=== PATIENT | female | born 1965 | race Hispanic/Latino ===

== ENCOUNTER → 2019-03-25 | Outpatient (CLI) | payer MEDICARE | END | disposition home or self-care (01) | LOC: OIH 11:00 | PROVIDERS: ATTEND Internal Medicine | DX: M06.4 Inflammatory polyarthropathy (principal) | CPT/HCPCS: 73130; 73630 ==

== ENCOUNTER 2019-11-10 21:02 | Inpatient (IN) | payer MEDICARE ==
[~2019-11-10] VITALS: Ht 160 cm; Wt 75.3 kg
[~2019-11-10 21:02] MED LIST: ALBUMIN (HUMAN) 25% 50 ML IV ONE; AMINOCAPROIC ACID 250 MG/ML 20 ML VIAL IV ONE; CALCIUM CHLORIDE 100 MG/ML 10 ML SYG IVP ONE; HEPARIN SODIUM 1000UNIT/ML 10ML VIAL IV ONE; MAGNESIUM SULFATE 1 GM/2 ML VIAL IM ONE; MANNITOL 25% 50ML VIAL IV ONE; PHENYLEPHRINE HCL 10 MG/ML 1ML VIAL IV ONE; ROCURONIUM BROMIDE 10MG/1ML 5ML VL IV ONE; SODIUM BICARB 8.4% 50ML SYRINGE IVP ONE
[2019-11-10] MEDS ORDERED: IPRATROPIUM/ALBUTEROL SULFATE 3 ML SOLUTION IH ONE (21:04)
[2019-11-10] MEDS ORDERED: ALBUTEROL SULFATE 0.083% 2.5 MG/3 ML INH IH ONE ×2 (21:12→22:20)
[2019-11-10 21:23] LABS: BASOPHILS % (AUTO) 0.5 % (0.0-5.0); EOSINOPHILS % (AUTO) 1.3 % (0.0-8.0); HEMATOCRIT 44.1 % (36-48); LYMPHOCYTES % (AUTO) 33.4 % (21.0-51.0); MEAN CORPUSCULAR HEMOGLOBIN 26.7 pg (27.0-33.0); MEAN CORPUSCULAR HGB CONC 31.1 g/dL (32.0-36.0); MONOCYTES % (AUTO) 5.2 % (3.0-13.0); NEUTROPHILS % (AUTO) 58.7 % (40.0-77.0); PLATELET COUNT (AUTO) 424 K/uL (130-400); RED BLOOD CELL COUNT(AUTO) 5.13 MIL/uL (4.00-5.50); RED CELL DISTRIBUTION WIDTH 15.6 % (11.0-15.5); WHITE BLOOD COUNT (AUTO) 12.8 K/uL (4.8-10.8)
[2019-11-10 21:38] LABS: INR 0.9 (0.85-1.15); PARTIAL THROMBOPLASTIN TIME 23.8 SEC (26.3-35.5); PROTHROMBIN TIME 9.8 SEC (9.6-11.6)
[2019-11-10] MEDS ORDERED: AZITHROMYCIN 500MG+NS 250ML 250 ML IV ONE (21:40)
[2019-11-10] MEDS ORDERED: SODIUM CHLORIDE 0.9% 1000ML 2,000 ML IV ONE (21:41)
[2019-11-10] MEDS ORDERED: CEFTRIAXONE SODIUM 1 GM ONE (21:41)
[2019-11-10 21:43] LABS: CREATININE 1.4 mg/dL (0.5-1.5); POTASSIUM 3.9 mmol/L (3.5-5.1)
[2019-11-10 21:48] LABS: ALBUMIN 3.1 g/dL (3.5-5.0); BILIRUBIN,TOTAL 0.3 mg/dL (0.2-1.0)
[2019-11-10 22:21] LABS: B-TYPE NATRIURETIC PEPTIDE 217 pg/mL (0-100)
[2019-11-10] MEDS ORDERED: METHYLPREDNISOLONE SOD SUCC 125MG/2ML VIAL ONE (22:25)
[2019-11-10] MEDS ORDERED: MORPHINE SULFATE 2 MG/ML 1ML SYG ONE ×2 (22:35→22:38)
[2019-11-10] MEDS ORDERED: ONDANSETRON HCL 4 MG/2 ML VIAL ONE (22:35)
[2019-11-10] MEDS ORDERED: ASPIRIN 325MG EC TAB 325 MG TABLET.DR PO ONE (22:38)
[2019-11-10] MEDS ORDERED: NITROGLYCERIN 1GM/1 INCH PACKET TD ONE (22:38)
[2019-11-10] MEDS ORDERED: MORPHINE SULFATE 2 MG/ML 1ML SYG IV PRN (22:45)
[2019-11-10] MEDS ORDERED: ACETAMINOPHEN 325 MG TAB PO PRN ×2 (22:45)
[2019-11-10] MEDS: METHYLPREDNISOLONE SOD SUCC 125MG/2ML VIAL IV SCH (22:45)
[2019-11-10] MEDS ORDERED: NITROGLYCERIN 0.4 MG SL TAB SL PRN (22:45)
[2019-11-10] MEDS ORDERED: VANCOMYCIN PROTOCOL PER PHARMACY IV SCH (22:45)
[2019-11-10] MEDS: DOXYCYCLINE 100MG+NS 250ML 250 ML IV SCH (22:45)
[2019-11-10] MEDS ORDERED: ONDANSETRON HCL 4 MG/2 ML VIAL IV PRN (22:45)
[2019-11-10] MEDS ORDERED: ASPIRIN 325 MG TABLET ONE (22:57)
[2019-11-10 23:15] LABS: ABG BASE EXCESS -9.8 mmol/L (-2.0-3.0); ABG HCO3 18.3 mmol/L (21.0-28.0); ABG OXYGEN SATURATION 94.6 % (95.0-99.0); ABG PCO2 49 mmHg (32-45)
[2019-11-10] MEDS ORDERED: HYDRALAZINE HCL 20 MG/ML VIAL IV PRN (23:45)
[2019-11-10 23:51] LABS: CHOLESTEROL 187 mg/dL (<200); HDL CHOLESTEROL 114 mg/dL (35-85); LDL DIRECT 105 mg/dL (0-99); TRIGLYCERIDES 195 mg/dL (30-200)
[2019-11-10] MEDS ORDERED: PROPOFOL 1000 MG/100 ML 100 ML IV ONE (23:58)
[2019-11-11] VITALS (43 sets, daily range): BP systolic 87–115; BP diastolic 42–71
[2019-11-11] MEDS ORDERED: VANCOMYCIN 1GM+NS 250ML 250 ML IV SCH
[2019-11-11] MEDS ORDERED: IOHEXOL-350 75 ML VIAL IV ONE (00:18)
[2019-11-11] MEDS ORDERED: FUROSEMIDE 10 MG/ML 4ML VIAL ONE (00:20)
[2019-11-11] MEDS ORDERED: NOREPINEPHRINE BITARTRATE 1 MG/1 ML ML IV ONE ×2 (00:22→01:54)
[2019-11-11] MEDS ORDERED: SODIUM CHLORIDE 0.9% 250 ML IV ONE ×2 (00:23→01:55)
[2019-11-11] MEDS ORDERED: FENTANYL CITRATE PF 50 MCG/1 ML 2ML VIAL ONE (00:38)
[2019-11-11] MEDS ORDERED: MIDAZOLAM HCL 1 MG/ML 2ML VIAL ONE ×2 (00:38→01:21)
[2019-11-11] MEDS ORDERED: FENTANYL 1000MCG+NS 100ML 100 ML ONE ×3 (01:41→18:10)
[2019-11-11] MEDS ORDERED: FENTANYL CITRATE PF 0.05 MG/ML 1,000 MCG in SODIUM CHLORIDE 0.9% 100 ML IVPB SCH (01:45)
[2019-11-11] MEDS: IPRATROPIUM/ALBUTEROL SULFATE 3 ML SOLUTION IH SCH ×5 (02:00→17:30)
[2019-11-11] MEDS ORDERED: DOXYCYCLINE 100MG+NS 250ML 250 ML IV ONE (02:32)
[2019-11-11] MEDS: CEFEPIME HCL 2 GM VIAL IVP SCH ×3 (02:50→23:45)
[2019-11-11 03:07] LABS: ABG BASE EXCESS -12.3 mmol/L (-2.0-3.0); ABG OXYGEN SATURATION 79.4 % (95.0-99.0); ABG PCO2 52 mmHg (32-45)
--- NOTE | 2019-11-11 03:20 | NUR ---
BENCHMARK PICKARD IMPLEMENTATION MANAGER PAGED FOR ABG RESULTS. PENDING CALL BACK
[2019-11-11 03:23] LABS: ABG BASE EXCESS -11.7 mmol/L (-2.0-3.0); ABG HCO3 17.4 mmol/L (21.0-28.0); ABG OXYGEN SATURATION 80.1 % (95.0-99.0); ABG PCO2 51 mmHg (32-45)
--- NOTE | 2019-11-11 03:31 | NUR ---
HOSPITALIST UYEN AT BEDSIDE STATES HE WAS CALLED WITH CT SCAN RESULTS BY RADIOLOGIST AND CARDIOLOGY TO BE CONSULTED IN AM. Addendum: 11/11/19 at 0351 by CONSTANCE BEARDEN RN RN HE WAS ALSO GIVEN RESULTS OR RESPIRATORY PCR
--- NOTE | 2019-11-11 03:51 | NUR ---
BENCHMARK PICKARD RETAIL PRODUCT DEMO SPECIALIST PAGED AGAIN AT THIS TIME.
[2019-11-11] MEDS ORDERED: FUROSEMIDE 100 MG in SODIUM CHLORIDE 0.9% 100 ML IV SCH (04:00)
[2019-11-11] MEDS: SODIUM BICARB 8.4% 50ML SYRING 200 MEQ in DEXTROSE 5%-WATER 950 ML IV SCH ×4 (04:00→20:17)
[2019-11-11] MEDS ORDERED: SODIUM BICARB 50MEQ 50ML VIAL IV SCH (04:00)
[2019-11-11] MEDS ORDERED: SODIUM BICARB 50MEQ 50ML VIAL ONE (04:06)
[2019-11-11] MEDS ORDERED: FUROSEMIDE 10 MG/ML 10ML VIAL ONE (04:06)
[2019-11-11] MEDS ORDERED: DEXTROSE 5%-WATER 1,000 ML IV ONE (04:07)
[2019-11-11] MEDS ORDERED: SODIUM CHLORIDE 0.9% 100 ML IV ONE (04:07)
[2019-11-11] MEDS: METHYLPREDNISOLONE SOD SUCC 125MG/2ML VIAL IV SCH ×3 (05:49→23:45)
[2019-11-11] MEDS ORDERED: COMPOUND IV REFRIGERATED 1 EACH IVSOLN MISC PRN (06:30)
[2019-11-11 06:48] LABS: CREATININE 1.5 mg/dL (0.5-1.5); POTASSIUM 3.9 mmol/L (3.5-5.1)
[2019-11-11 07:21] LABS: BASOPHILS % (AUTO) 0.2 % (0.0-5.0); HEMATOCRIT 42.1 % (36-48); LYMPHOCYTES % (AUTO) 3.9 % (21.0-51.0); MEAN CORPUSCULAR HEMOGLOBIN 27.5 pg (27.0-33.0); MEAN CORPUSCULAR HGB CONC 32.1 g/dL (32.0-36.0); MEAN CORPUSCULAR VOLUME 85.7 fL (79-99); MONOCYTES % (AUTO) 3.1 % (3.0-13.0); NEUTROPHILS % (AUTO) 90.7 % (40.0-77.0); PLATELET COUNT (AUTO) 401 K/uL (130-400); RED BLOOD CELL COUNT(AUTO) 4.91 MIL/uL (4.00-5.50); RED CELL DISTRIBUTION WIDTH 15.9 % (11.0-15.5); WHITE BLOOD COUNT (AUTO) 22.6 K/uL (4.8-10.8)
[2019-11-11 07:51] LABS: ABG BASE EXCESS -3.8 mmol/L (-2.0-3.0); ABG HCO3 21.6 mmol/L (21.0-28.0); ABG OXYGEN SATURATION 80.9 % (95.0-99.0); ABG PCO2 40 mmHg (32-45)
[2019-11-11] MEDS: METOPROLOL TARTRATE 25 MG TAB PO SCH ×2 (08:02→20:17)
[2019-11-11] MEDS: ASPIRIN 325 MG TABLET PO SCH (09:00)
[2019-11-11] MEDS: NOREPINEPHRINE 4MG/NS 250ML 250 ML IV SCH (10:18)
[2019-11-11] MEDS: FAMOTIDINE/PF 20 MG/2 ML VIAL IV SCH ×2 (10:19→20:16)
[2019-11-11] MEDS: ENOXAPARIN SODIUM 40 MG/0.4 ML SYRINGE SQ SCH (10:19)
[2019-11-11] MEDS: VANCOMYCIN 1.25 GM in SODIUM CHLORIDE 0.9% 250 ML IV SCH (10:20)
[2019-11-11] MEDS: MIDAZOLAM 50MG-0.9% NS 50ML 50 ML BAG IV SCH (10:44)
[2019-11-11 11:21] LABS: ABG BASE EXCESS -3.5 mmol/L (-2.0-3.0); ABG HCO3 22.7 mmol/L (21.0-28.0); ABG OXYGEN SATURATION 78.2 % (95.0-99.0); ABG PCO2 45 mmHg (32-45)
[2019-11-11] MEDS: DOXYCYCLINE 100MG+NS 250ML 250 ML IV SCH ×2 (12:21→23:45)
--- NOTE | 2019-11-11 14:34 | NUR ---
TUBE FEEDING RECOMMENDATIONS DX ARDS. DIET: NPO. LABS REVIEWED (WBC 23, NA 146). MEDS REVIEWED. SKIN IS INTACT. PT IS CURRENTLY INTUBATED AND SEDATED. AIR[place]ORNE PRECAUTIONS CURRENTLY IN PLACE. RD RECOMMENDS TO START TUBE FEEDING IF MEDICALLY FEASIBLE USING VITAL AF 1.2 START FULL STRENGTH AT 25ML/HR INCREASE RATE BY 5MLS EVERY 5HRS TOLERATED UNTIL GOAL RATE ACHIEVED GOAL RATE IS 45ML/HR FLUSH WITH 255ML Q6HRS MONITOR LABS, RESIDUALS, BM RD WILL CONTINUE TO MONITOR AND FOLLOW UP, THANK YOU. Addendum: 11/11/19 at [address] Amended: Links added.
--- NOTE | 2019-11-11 15:06 | NUR ---
DELORES PLAN PATIENT IN ISOLATION NO VISITORS ALLOWED. POOR CONDITION. KEVIN WILL CONTINUE TO FOLLOW. Addendum: 11/11/19 at 1530 by BERTRAND BETANCUR RN CM Amended: Links added.
[2019-11-11 16:53] LABS: ABG BASE EXCESS -1.3 mmol/L (-2.0-3.0); ABG HCO3 24.7 mmol/L (21.0-28.0); ABG OXYGEN SATURATION 78.7 % (95.0-99.0); ABG PCO2 46 mmHg (32-45)
[2019-11-11] MEDS ORDERED: SODIUM CHLORIDE 0.9% 500ML 500 ML IV ONE (18:00)
[2019-11-11] MEDS: INSULIN HUMULIN R 100 UNIT/ML 3ML SQ SCH (18:05)
--- NOTE | 2019-11-11 19:50 | NUR ---
DR KAM HUMPHREY FOR PT UP-DATE. PT UP-DATE GIVEN. MADE AWARE SP02 60%. PT NPO UNABLE TO GIVEN ORAL MEDS. SEE ORDERS.
--- NOTE | 2019-11-11 20:00 | NUR ---
ASSESSMENT PT IN PRONE POSITION. LEVOPHED, FENTANYL AND VERSED INFUSING WITHOUT DIFFICULTY. FROTHY PINK SPUTUM NOTED. PT INTUBATED, AC-24-100%-400-PEEP 18 PLATEAU PRESSURE 28. ASSESSMENT COMPLETED, SEE FLOW SHEET.
[2019-11-11] MEDS: ATORVASTATIN CALCIUM 20 MG TABLET PO SCH (20:17)
[2019-11-11] MEDS: IPRATROPIUM 0.5 MG/2.5 ML INH IH SCH (21:15)
[2019-11-11 22:23] LABS: ABG BASE EXCESS -1.2 mmol/L (-2.0-3.0); ABG HCO3 23.5 mmol/L (21.0-28.0); ABG OXYGEN SATURATION 88.2 % (95.0-99.0); ABG PCO2 40 mmHg (32-45)
--- NOTE | 2019-11-11 22:30 | NUR ---
DR KAM HUMPHREY CALLED WITH ABG RESULTS. NO NEW ORDERS AT THIS TIME.
[2019-11-12] VITALS (34 sets, daily range): BP systolic 87–138; BP diastolic 52–81
[2019-11-12] MEDS: IPRATROPIUM 0.5 MG/2.5 ML INH IH SCH ×5 (00:06→08:00)
[2019-11-12] MEDS ORDERED: FENTANYL 1000MCG+NS 100ML 100 ML ONE ×4 (00:20→22:57)
--- NOTE | 2019-11-12 00:27 | NUR ---
CVP 6 CVP 6, 500ML NS BOLUS GIVEN
[2019-11-12] MEDS ORDERED: SODIUM CHLORIDE 0.9% 500ML 500 ML IV ONE (00:40)
[2019-11-12] MEDS: SODIUM BICARB 8.4% 50ML SYRING 200 MEQ in DEXTROSE 5%-WATER 950 ML IV SCH (02:42)
[2019-11-12] MEDS: NOREPINEPHRINE 4MG/NS 250ML 250 ML IV SCH ×4 (04:37→20:58)
[2019-11-12] MEDS: MIDAZOLAM 50MG-0.9% NS 50ML 50 ML BAG IV SCH ×2 (04:37→20:42)
[2019-11-12] MEDS: INSULIN HUMULIN R 100 UNIT/ML 3ML SQ SCH ×4 (05:00→18:00)
[2019-11-12] MEDS: METHYLPREDNISOLONE SOD SUCC 125MG/2ML VIAL IV SCH (05:00)
[2019-11-12 05:20] LABS: BASOPHILS % (AUTO) 0.1 % (0.0-5.0); LYMPHOCYTES % (AUTO) 4.6 % (21.0-51.0); MEAN CORPUSCULAR HEMOGLOBIN 27.6 pg (27.0-33.0); MEAN CORPUSCULAR HGB CONC 32.3 g/dL (32.0-36.0); MEAN CORPUSCULAR VOLUME 85.6 fL (79-99); MONOCYTES % (AUTO) 3.2 % (3.0-13.0); NEUTROPHILS % (AUTO) 91.7 % (40.0-77.0); PLATELET COUNT (AUTO) 312 K/uL (130-400); RED BLOOD CELL COUNT(AUTO) 4.09 MIL/uL (4.00-5.50); RED CELL DISTRIBUTION WIDTH 16.2 % (11.0-15.5); WHITE BLOOD COUNT (AUTO) 18.7 K/uL (4.8-10.8)
--- NOTE | 2019-11-12 05:30 | NUR ---
PCP PCP VERBALIZED TO RN THAT HE "FELT UNCOMFORTABLE/SCARED" GOING INTO PT'S ROOM TO CHECK TEMPS. PCP RELAYED THIS INFORMATION TO RN AT THE END OF SHIFT.
[2019-11-12 05:42] LABS: CREATININE 1.7 mg/dL (0.5-1.5); POTASSIUM 3.6 mmol/L (3.5-5.1)
[2019-11-12 05:45] LABS: ABG BASE EXCESS -0.9 mmol/L (-2.0-3.0); ABG HCO3 23.3 mmol/L (21.0-28.0); ABG OXYGEN SATURATION 87.3 % (95.0-99.0); ABG PCO2 37 mmHg (32-45)
[2019-11-12] MEDS: IPRATROPIUM/ALBUTEROL SULFATE 3 ML SOLUTION IH SCH (06:26)
[2019-11-12] MEDS: ASPIRIN 325 MG TABLET PO SCH (09:00)
--- NOTE | 2019-11-12 09:00 | NUR ---
Manohar Hendrix in an effort to facilitate him seeing patient.
[2019-11-12] MEDS: FENTANYL CITRATE PF 0.05 MG/ML 1,000 MCG in SODIUM CHLORIDE 0.9% 100 ML IVPB SCH (09:42)
[2019-11-12] MEDS: ENOXAPARIN SODIUM 40 MG/0.4 ML SYRINGE SQ SCH (09:47)
[2019-11-12] MEDS: CEFEPIME HCL 2 GM VIAL IVP SCH (09:47)
[2019-11-12] MEDS: VANCOMYCIN 1.25 GM in SODIUM CHLORIDE 0.9% 250 ML IV SCH (09:48)
[2019-11-12] MEDS: DOXYCYCLINE 100MG+NS 250ML 250 ML IV SCH ×2 (09:50→22:50)
[2019-11-12] MEDS: FAMOTIDINE/PF 20 MG/2 ML VIAL IV SCH ×2 (09:50→19:59)
--- NOTE | 2019-11-12 11:12 | NUR ---
2D-ECHO SPOKE C/ LAURI ELECTRIC TRIPPER MACHINE OPERATOR. MADE AWARE OF PENDING ECHO AND TIME SENSITIVITY TO BE DONE TODAY DURING THE DAY WHILE PATIENT IS IN SUPINE POSITION. PATIENT WILL BE PLACED BACK IN PRONE POSITION AT 2100. HE STATED ECHO WILL BE COMPLETED TODAY. PENDING ECHO AT THIS TIME.
[2019-11-12 12:49] LABS: APPEARANCE,URINE CLEAR (CLEAR); BILIRUBIN,URINE NEGATIVE (NEGATIVE); COLOR,URINE YELLOW (YELLOW); GLUCOSE, URINE (UA) NEGATIVE (NEGATIVE); KETONES,URINE NEGATIVE (NEGATIVE); LEUKOCYTE ESTERASE ,URINE NEGATIVE (NEGATIVE); NITRATE,URINE NEGATIVE (NEGATIVE); OCCULT BLOOD,URINE NEGATIVE (NEGATIVE); PROTEIN,URINE 30 mg/dL (NEGATIVE); UROBILINOGEN,URINE 0.2 mg/dL (0.2-1.0)
[2019-11-12] MEDS: MEROPENEM 1 GM VIAL IVP SCH ×2 (12:55→20:39)
[2019-11-12 13:05] LABS: BACTERIA,URINE Few /HPF (None Seen); MUCUS,URINE Few LPF (None Seen); SQUAMOUS EPITHELIAL CELL,UR Few /HPF (0-2)
--- NOTE | 2019-11-12 14:00 | NUR ---
Paged Dr. Hendrix again. In an effort to make aware of most recent 2D-Echo results. Was going to inquire if he wanted to place order for SUSAN? Pending call back and for him to see patient at this time.
[2019-11-12] MEDS ORDERED: ACETAMINOPHEN 650 MG SUPPOSITORY RC PRN (14:30)
[2019-11-12] MEDS ORDERED: PHARMACY COMMUNICATION MISC SCH (14:30)
[2019-11-12] MEDS ORDERED: HYDROXYCHLOROQUINE SULFATE 200 MG TAB PO SCH (14:48)
[2019-11-12] MEDS: ATORVASTATIN CALCIUM 20 MG TABLET PO SCH (20:00)
--- NOTE | 2019-11-12 20:00 | NUR ---
ASSESSMENT PT IN SUPINE POSITION. LEVOPHED, FENTANYL AND VERSED INFUSING WITHOUT DIFFICULTY. FROTHY PINK SPUTUM NOTED AND WEAK/SLOW GAG REFLEX NOTED. PT INTUBATED, AC-24-100%-400-PEEP 18 PLATEAU PRESSURE 28. 16FR NAVARRETE CATH TO BEDSIDE DRAINAGE. ASSESSMENT COMPLETED, SEE FLOW SHEET. BEDSIDE MONITOR SETTING REVIEWED AND ADJUSTED PER PT PARAMETERS. CALLBELL WITHIN REACH. WHITE BOARD UP-DATED.
--- NOTE | 2019-11-12 20:30 | NUR ---
DR KAM HUMPHREY CALLED AND MADE AWARE SPO2 DECREASING TO 84% - 88%. R.T. PLACED O2 10L FLOW. NO OTHER ORDERS RECEIVED.
[2019-11-12] MEDS ORDERED: FAMOTIDINE/PF 20 MG/2 ML VIAL IV STA (20:45)
[2019-11-13] VITALS (32 sets, daily range): BP systolic 112–135; BP diastolic 64–82
--- NOTE | 2019-11-13 00:19 | NUR ---
As per Dr. Newman's order vent management done with 10L O2 flow added. Addendum: 11/13/19 at 0026 by ROBERTO LIRA RT Amended: Links added.
--- NOTE | 2019-11-13 00:21 | NUR ---
As per Dr. Newman's order vent management done with 8L O2 flow added. Addendum: 11/13/19 at 0026 by ROBERTO LIRA RT Amended: Links added.
--- NOTE | 2019-11-13 01:19 | NUR ---
As per Dr. Newman's order vent management done with 8L O2 flow added. Addendum: 11/13/19 at 0123 by ROBERTO LIRA RT Amended: Links added.
[2019-11-13] MEDS: MEROPENEM 1 GM VIAL IVP SCH ×3 (04:16→19:52)
[2019-11-13] MEDS: MIDAZOLAM 50MG-0.9% NS 50ML 50 ML BAG IV SCH ×3 (04:17→22:52)
[2019-11-13 05:00] LABS: BASOPHILS % (AUTO) 0.1 % (0.0-5.0); HEMATOCRIT 32.8 % (36-48); LYMPHOCYTES % (AUTO) 4.9 % (21.0-51.0); MEAN CORPUSCULAR HEMOGLOBIN 27.1 pg (27.0-33.0); MEAN CORPUSCULAR HGB CONC 31.4 g/dL (32.0-36.0); MEAN CORPUSCULAR VOLUME 86.3 fL (79-99); MONOCYTES % (AUTO) 3.8 % (3.0-13.0); NEUTROPHILS % (AUTO) 90.2 % (40.0-77.0); NUCLEATED RED BLOOD CELLS 0.1 % (0.0-0.19); PLATELET COUNT (AUTO) 248 K/uL (130-400); RED CELL DISTRIBUTION WIDTH 17.2 % (11.0-15.5)
[2019-11-13 05:10] LABS: CREATININE 1.2 mg/dL (0.5-1.5); POTASSIUM 3.7 mmol/L (3.5-5.1)
[2019-11-13] MEDS: INSULIN HUMULIN R 100 UNIT/ML 3ML SQ SCH ×4 (05:32→18:00)
[2019-11-13] MEDS ORDERED: FENTANYL 1000MCG+NS 100ML 100 ML ONE ×2 (07:37→18:40)
[2019-11-13] MEDS: NOREPINEPHRINE 4MG/NS 250ML 250 ML IV SCH ×2 (07:45→22:52)
[2019-11-13] MEDS: DOXYCYCLINE 100MG+NS 250ML 250 ML IV SCH ×2 (07:45→22:52)
[2019-11-13] MEDS: FAMOTIDINE/PF 20 MG/2 ML VIAL IV SCH (07:46)
[2019-11-13] MEDS: VANCOMYCIN 1.25 GM in SODIUM CHLORIDE 0.9% 250 ML IV SCH (07:46)
[2019-11-13] MEDS: ENOXAPARIN SODIUM 40 MG/0.4 ML SYRINGE SQ SCH (07:47)
[2019-11-13 08:39] LABS: ABG BASE EXCESS -1.5 mmol/L (-2.0-3.0); ABG HCO3 22.3 mmol/L (21.0-28.0); ABG OXYGEN SATURATION 99.5 % (95.0-99.0); ABG PCO2 35 mmHg (32-45)
[2019-11-13] MEDS ORDERED: FUROSEMIDE 10 MG/ML 2ML VIAL IV SCH (10:30)
[2019-11-13] MEDS: ASPIRIN 81MG TAB.CHEW PO SCH (11:39)
[2019-11-13] MEDS: HYDROXYCHLOROQUINE SULFATE 200 MG TAB PO SCH (11:39)
--- NOTE | 2019-11-13 13:16 | NUR ---
CARDIO PAGED CARDIO AT 0900 IN AN EFFORT TO HAVE CARDIO COME AND SEE PATIENT. CARDIO CONSULTED 3DAYS AGO. HAVE YET TO SEE PATIENT. MADE CHARGE NURSE TOMMY AWARE TODAY. NO RESPONSE FROM PAGE. MADE CHARGE NURSE AWARE OF SITUATION. CHARGE NURSE SPOKE WITH DR GIPSON AND AT THIS TIME CARDIO WILL NOT SEE PATIENT UNTIL PATIENT IS CLEARED FROM INFECTIOUS DISEASE AND OK BY DR. LYNN TO SEE PATIENT. ALSO, DR GIPSON SPOKE WITH DR ROLLE ([facility]). DR ROLLE STATED THAT HE WILL SEE PATIENT ONCE CLEARED FROM ID AND DR LYNN.
--- NOTE | 2019-11-13 20:00 | NUR ---
ASSESSMENT PT IN SUPINE POSITION. LEVOPHED, FENTANYL AND VERSED INFUSING WITHOUT DIFFICULTY. FROTHY BROWN SPUTUM NOTED AND (+) COUGH, OPENS EYES WITH VERBAL STIMULI BUT DOES NOT FOLLOW COMMANDS OR TRACK. WEAK/SLOW GAG REFLEX NOTED. PT INTUBATED, AC-24-80%-400-PEEP 16. 16FR NAVARRETE CATH TO BEDSIDE DRAINAGE. 16FR OGT IN PLACE WITH GLUCERNA INFUSING, TOLERATING WITHOUT DIFFICULTY AT PRESENT. ASSESSMENT COMPLETED, SEE FLOW SHEET. BEDSIDE MONITOR SETTING REVIEWED AND ADJUSTED PER PT PARAMETERS. CALLBELL WITHIN REACH. WHITE BOARD UP-DATED.
[2019-11-13] MEDS: ATORVASTATIN CALCIUM 20 MG TABLET PO SCH (20:03)
--- NOTE | 2019-11-13 20:30 | NUR ---
FAMILY CALLED SPOKE WITH SON SYDNEE. REQUESTING INFORMATION. NO PASSWORD HAS BEEN SET UP. INFORMED HIM ONLY BASIC/LIMITED INFO COULD BE GIVEN.
[2019-11-13] MEDS ORDERED: HYDROXYCHLOROQUINE SULFATE 200 MG TAB PO SCH (21:00)
[2019-11-14] VITALS (28 sets, daily range): BP systolic 91–118; BP diastolic 54–82
--- NOTE | 2019-11-14 04:00 | NUR ---
ASSESSMENT PT REMAINS INTUBATED AND SEDATED. VENT SETTING AC-24-50%-400-16 . LEVOPHED, FENTANYL AND VERSED INFUSING WITHOUT DIFFICULTY. FROTHY BROWN SPUTUM NOTED AND (+) COUGH, OPENS EYES WITH VERBAL STIMULI BUT DOES NOT FOLLOW COMMANDS OR TRACK. (+) GAG REFLEX NOTED. 16FR NAVARRETE CATH TO BEDSIDE DRAINAGE. 16FR OGT IN PLACE WITH GLUCERNA INFUSING, TOLERATING WITHOUT DIFFICULTY AT PRESENT. ASSESSMENT COMPLETED, SEE FLOW SHEET. CALLBELL WITHIN REACH.
[2019-11-14] MEDS: MEROPENEM 1 GM VIAL IVP SCH ×3 (04:32→22:04)
[2019-11-14 05:27] LABS: BASOPHILS % (AUTO) 0.1 % (0.0-5.0); EOSINOPHILS % (AUTO) 0.7 % (0.0-8.0); HEMATOCRIT 29.6 % (36-48); LYMPHOCYTES % (AUTO) 8.7 % (21.0-51.0); MEAN CORPUSCULAR HEMOGLOBIN 27.9 pg (27.0-33.0); MEAN CORPUSCULAR HGB CONC 32.4 g/dL (32.0-36.0); MONOCYTES % (AUTO) 3.2 % (3.0-13.0); NEUTROPHILS % (AUTO) 86.3 % (40.0-77.0); NUCLEATED RED BLOOD CELLS 0.2 % (0.0-0.19); PLATELET COUNT (AUTO) 168 K/uL (130-400); RED BLOOD CELL COUNT(AUTO) 3.44 MIL/uL (4.00-5.50); WHITE BLOOD COUNT (AUTO) 16.4 K/uL (4.8-10.8)
[2019-11-14 05:47] LABS: ALBUMIN 1.7 g/dL (3.5-5.0); BILIRUBIN,TOTAL 0.3 mg/dL (0.2-1.0); CREATININE 0.8 mg/dL (0.5-1.5); PHOSPHORUS 1.8 mg/dL (2.5-4.9); POTASSIUM 3.5 mmol/L (3.5-5.1); TOTAL PROTEIN, SERUM 5.9 g/dL (6.0-8.3)
[2019-11-14] MEDS: INSULIN HUMULIN R 100 UNIT/ML 3ML SQ SCH ×4 (06:00→18:00)
[2019-11-14 08:12] LABS: ABG BASE EXCESS 2.3 mmol/L (-2.0-3.0); ABG HCO3 24.5 mmol/L (21.0-28.0); ABG OXYGEN SATURATION 95.1 % (95.0-99.0); ABG PCO2 32 mmHg (32-45)
[2019-11-14] MEDS ORDERED: FENTANYL 1000MCG+NS 100ML 100 ML ONE ×2 (08:44→19:41)
[2019-11-14] MEDS: ASPIRIN 81MG TAB.CHEW PO SCH (08:52)
[2019-11-14] MEDS: VANCOMYCIN 1.25 GM in SODIUM CHLORIDE 0.9% 250 ML IV SCH ×2 (08:52→22:05)
[2019-11-14] MEDS: HYDROXYCHLOROQUINE SULFATE 200 MG TAB PO SCH (08:53)
[2019-11-14] MEDS: FAMOTIDINE/PF 20 MG/2 ML VIAL IV SCH (08:54)
[2019-11-14] MEDS: ENOXAPARIN SODIUM 40 MG/0.4 ML SYRINGE SQ SCH (08:54)
[2019-11-14] MEDS: POTASSIUM CHLORIDE 20MEQ/100ML 100 ML IV PRN (08:58)
[2019-11-14] MEDS: DOXYCYCLINE 100MG+NS 250ML 250 ML IV SCH ×2 (11:52→22:05)
[2019-11-14] MEDS ORDERED: VANCOMYCIN 1.25 GM in SODIUM CHLORIDE 0.9% 250 ML IV SCH (12:00)
[2019-11-14] MEDS: MIDAZOLAM 50MG-0.9% NS 50ML 50 ML BAG IV SCH (13:37)
--- NOTE | 2019-11-14 14:09 | NUR ---
RD UPDATE Tube feeding notification received 11/13/19. RD TUBE FEEDING RECOMMENDATIONS PLACED 11/11/19. Multiple attempts to reach RN. Quarantine/Isolated Unit. TUBE FEEDING RECOMMENDATIONS CONTINUOUS VITAL AF 1.2 START FULL STRENGTH AT 25ML/HR INCREASE RATE BY 5MLS EVERY 5HRS TOLERATED UNTIL GOAL RATE ACHIEVED GOAL RATE IS 45ML/HR FLUSH WITH 255ML Q6HRS. RECOMMENDATIONS IN PT CHART.
[2019-11-14] MEDS: ARTIFICAL TEARS SOL 15 ML OU SCH ×2 (16:10→20:00)
[2019-11-14] MEDS: POTASSIUM PHOS 15 mMOL+NS250ML 250 ML IV PRN (18:18)
--- NOTE | 2019-11-14 20:23 | NUR ---
PT SATURATION 80% FIO2 INCREASED TO 100%,PRIMARY NURSE VENKATESH NOTIFIED,SATURATION INCREASED TO 95%
--- NOTE | 2019-11-14 21:00 | NUR ---
ASSESSMENT PT REMAINS INTUBATED AND SEDATED. VENT SETTING AC-20-100%-400-14 . LEVOPHED, FENTANYL AND VERSED INFUSING WITHOUT DIFFICULTY. FROTHY PINK SPUTUM NOTED AND (+) COUGH, OPENS EYES WITH VERBAL STIMULI. (+) GAG REFLEX NOTED. 16FR NAVARRETE CATH TO BEDSIDE DRAINAGE. 16FR OGT IN PLACE WITH GLUCERNA INFUSING, TOLERATING WITHOUT DIFFICULTY AT PRESENT. ASSESSMENT COMPLETED, SEE FLOW SHEET. CALLBELL WITHIN REACH.
[2019-11-14] MEDS: ATORVASTATIN CALCIUM 20 MG TABLET PO SCH (22:05)
[2019-11-14] MEDS: CHLORHEXIDINE GLUCONATE 473 ML MOUTHWASH MM SCH (22:05)
--- NOTE | 2019-11-14 23:20 | NUR ---
LACHO MONK NP MADE AWARE OF SPO2 AT 80%. SEE ORDERS.
[2019-11-15] VITALS (35 sets, daily range): BP systolic 79–136; BP diastolic 43–79
[2019-11-15 01:09] LABS: ABG BASE EXCESS 0.7 mmol/L (-2.0-3.0); ABG HCO3 24.5 mmol/L (21.0-28.0); ABG OXYGEN SATURATION 91.4 % (95.0-99.0); ABG PCO2 37 mmHg (32-45)
--- NOTE | 2019-11-15 01:15 | NUR ---
RESULTS VENT CHANGES MADE, ABG RESULTS GIVEN TO LACHO MONREAL. NO NEW ORDERS AT PRESENT.
[2019-11-15] MEDS: ARTIFICAL TEARS SOL 15 ML OU SCH ×3 (02:06→12:21)
[2019-11-15] MEDS: MEROPENEM 1 GM VIAL IVP SCH ×3 (03:48→21:10)
--- NOTE | 2019-11-15 04:00 | NUR ---
ASSESSMENT PT REMAINS INTUBATED AND SEDATED. VENT SETTING AC-18-100%-400 PEEP 18 . LEVOPHED, FENTANYL AND VERSED INFUSING WITHOUT DIFFICULTY. FROTHY PINK SPUTUM NOTED AND (+) COUGH, OPENS EYES WITH VERBAL STIMULI. (+) GAG REFLEX NOTED. 16FR NAVARRETE CATH TO BEDSIDE DRAINAGE. 16FR OGT IN PLACE WITH GLUCERNA INFUSING, TOLERATING WITHOUT DIFFICULTY AT PRESENT. ASSESSMENT COMPLETED, SEE FLOW SHEET. CALLBELL WITHIN REACH.
--- NOTE | 2019-11-15 05:15 | NUR ---
TACHYPNEIC/NASAL FLARING/SUBCLAVICULAR RETRACTIONS ATTEMPTED TO BATH PT. PT BEGAN TACHYPNEIC WITH NASAL FLARING AND SUBCLAVICULAR RETRACTIONS/INTERCOSTAL RETRACTIONS NOTED. BATH TERMINATED
[2019-11-15 05:48] LABS: HEMATOCRIT 33.5 % (36-48); MEAN CORPUSCULAR HEMOGLOBIN 26.4 pg (27.0-33.0); MEAN CORPUSCULAR HGB CONC 30.4 g/dL (32.0-36.0); MEAN CORPUSCULAR VOLUME 86.6 fL (79-99); NUCLEATED RED BLOOD CELLS 0.5 % (0.0-0.19); PLATELET COUNT (AUTO) 173 K/uL (130-400); RED BLOOD CELL COUNT(AUTO) 3.87 MIL/uL (4.00-5.50); RED CELL DISTRIBUTION WIDTH 17.2 % (11.0-15.5); WHITE BLOOD COUNT (AUTO) 13.6 K/uL (4.8-10.8)
[2019-11-15] MEDS: INSULIN HUMULIN R 100 UNIT/ML 3ML SQ SCH ×4 (05:58→18:00)
[2019-11-15 06:02] LABS: PARTIAL THROMBOPLASTIN TIME 26.1 SEC (26.3-35.5); PROTHROMBIN TIME 10.8 SEC (9.6-11.6)
[2019-11-15 06:30] LABS: ALBUMIN 1.7 g/dL (3.5-5.0); BILIRUBIN,TOTAL 0.5 mg/dL (0.2-1.0); CREATININE 0.8 mg/dL (0.5-1.5); MAGNESIUM 2.1 mg/dL (1.80-2.40); PHOSPHORUS 2.7 mg/dL (2.5-4.9)
[2019-11-15 06:43] LABS: B-TYPE NATRIURETIC PEPTIDE 350 pg/mL (0-100)
[2019-11-15 07:13] LABS: ABG BASE EXCESS 0.2 mmol/L (-2.0-3.0); ABG HCO3 23.9 mmol/L (21.0-28.0); ABG OXYGEN SATURATION 90.2 % (95.0-99.0); ABG PCO2 36 mmHg (32-45)
[2019-11-15] MEDS ORDERED: FUROSEMIDE 10 MG/ML 4ML VIAL IV SCH (08:45)
[2019-11-15] MEDS ORDERED: PHARMACY COMMUNICATION MISC STA (09:16)
[2019-11-15] MEDS ORDERED: MAGNESIUM 4GM PREMIX 100ML 100 ML IV PRN (09:30)
[2019-11-15] MEDS ORDERED: ROCURONIUM 10MG/1ML SYR 10 MG/ML ML IV SCH (09:30)
[2019-11-15] MEDS: FAMOTIDINE/PF 20 MG/2 ML VIAL IV SCH (10:12)
[2019-11-15] MEDS: VANCOMYCIN 1.25 GM in SODIUM CHLORIDE 0.9% 250 ML IV SCH ×2 (10:12→21:10)
[2019-11-15] MEDS: CHLORHEXIDINE GLUCONATE 473 ML MOUTHWASH MM SCH ×2 (10:13→21:15)
[2019-11-15] MEDS: ASPIRIN 81MG TAB.CHEW PO SCH (10:13)
[2019-11-15] MEDS: HYDROXYCHLOROQUINE SULFATE 200 MG TAB PO SCH (10:13)
[2019-11-15] MEDS: ENOXAPARIN SODIUM 40 MG/0.4 ML SYRINGE SQ SCH (10:14)
[2019-11-15] MEDS: DOXYCYCLINE 100MG+NS 250ML 250 ML IV SCH ×2 (10:15→22:44)
[2019-11-15 10:20] LABS: ABG BASE EXCESS -1.6 mmol/L (-2.0-3.0); ABG HCO3 24.5 mmol/L (21.0-28.0); ABG OXYGEN SATURATION 98.5 % (95.0-99.0); ABG PCO2 46 mmHg (32-45)
[2019-11-15] MEDS: MIDAZOLAM 50MG-0.9% NS 50ML 50 ML BAG IV SCH ×2 (11:49→21:12)
[2019-11-15] MEDS: FENTANYL CITRATE PF 0.05 MG/ML 1,000 MCG in SODIUM CHLORIDE 0.9% 100 ML IVPB SCH (11:50)
[2019-11-15] MEDS: CISATRACURIUM BESYLATE 100 MG in SODIUM CHLORIDE 0.9% 100 ML IV SCH ×2 (11:52→21:13)
[2019-11-15] MEDS ORDERED: FENTANYL 1000MCG+NS 100ML 100 ML ONE ×2 (12:46→20:02)
[2019-11-15 14:10] LABS: ABG BASE EXCESS 1.2 mmol/L (-2.0-3.0); ABG HCO3 24.4 mmol/L (21.0-28.0); ABG OXYGEN SATURATION 99.5 % (95.0-99.0); ABG PCO2 34 mmHg (32-45)
--- NOTE | 2019-11-15 16:26 | NUR ---
DELORES PLAN PATIENT STILL PENDING COVID 19 RESULTS. IN CRITICAL CONDITION. CM WILL CONTINUE TO FOLLOW. Addendum: 11/15/19 at 1627 by BERTRAND BETANCUR RN CM Amended: Links added.
[2019-11-15] MEDS: ARTIFICIAL TEARS 3.5 GM OINTMENT OU SCH ×2 (18:00→21:05)
[2019-11-15] MEDS: METOLAZONE 2.5 MG TABLET PO SCH (18:40)
--- NOTE | 2019-11-15 21:00 | NUR ---
ASSESSMENT PT REMAINS INTUBATED, SEDATED AND PARALYZED. LEVOPHED, FENTANYL, VERSED AND NIMBEX INFUSING WITHOUT DIFFICULTY. FROTHY PINK SPUTUM NOTED AND (+) COUGH, OPENS EYES WITH SUCTIONING. (+) GAG REFLEX NOTED. 16FR NAVARRETE CATH TO BEDSIDE DRAINAGE. 16FR OGT IN PLACE WITH GLUCERNA INFUSING, TOLERATING WITHOUT DIFFICULTY AT PRESENT. ASSESSMENT COMPLETED, SEE FLOW SHEET. CALLBELL WITHIN REACH. BEDSIDE MONITOR ADJUSTED PER PT NEEDS. WHITE BOARDS UP-DATED .
[2019-11-15] MEDS: FUROSEMIDE 10 MG/ML 4ML VIAL IVP SCH (21:11)
[2019-11-15] MEDS: ATORVASTATIN CALCIUM 20 MG TABLET PO SCH (21:12)
[2019-11-16] VITALS (42 sets, daily range): BP systolic 84–160; BP diastolic 31–88
--- NOTE | 2019-11-16 | NUR ---
ASSESSMENT PT REMAINS INTUBATED AND SEDATED. LEVOPHED, FENTANYL, NIMBEX AND VERSED INFUSING WITHOUT DIFFICULTY. FROTHY PINK SPUTUM NOTED AND (+) COUGH. (+) GAG REFLEX NOTED. 16FR NAVARRETE CATH TO BEDSIDE DRAINAGE. 16FR OGT IN PLACE WITH GLUCERNA INFUSING, TOLERATING WITHOUT DIFFICULTY AT PRESENT. ASSESSMENT COMPLETED, SEE FLOW SHEET.
[2019-11-16] MEDS: ARTIFICIAL TEARS 3.5 GM OINTMENT OU SCH ×4 (00:19→19:47)
[2019-11-16] MEDS ORDERED: FENTANYL 1000MCG+NS 100ML 100 ML ONE (01:11)
[2019-11-16] MEDS: MIDAZOLAM 50MG-0.9% NS 50ML 50 ML BAG IV SCH ×3 (01:26→19:46)
[2019-11-16] MEDS ORDERED: NOREPINEPHRINE BITARTRATE 1 MG/1 ML ML IV ONE (03:00)
[2019-11-16] MEDS ORDERED: ATROPINE SULFATE 0.1 MG/ML 10 ML SYG IVP ONE ×2 (03:40→03:41)
[2019-11-16 03:52] LABS: ABG BASE EXCESS 4.2 mmol/L (-2.0-3.0); ABG HCO3 24.6 mmol/L (21.0-28.0); ABG OXYGEN SATURATION 98.5 % (95.0-99.0); ABG PCO2 26 mmHg (32-45)
[2019-11-16] MEDS: MEROPENEM 1 GM VIAL IVP SCH ×3 (04:03→19:46)
--- NOTE | 2019-11-16 04:15 | NUR ---
BRADYCARDIA HR DECREASED TO 42. ATROPINE 1 AMP GIVEN. HR INCREASED TO 90. ROXANNE MONREAL MADE AWARE, SEE ORDERS.
[2019-11-16 05:35] LABS: HEMATOCRIT 31.2 % (36-48); MEAN CORPUSCULAR HEMOGLOBIN 26.6 pg (27.0-33.0); MEAN CORPUSCULAR HGB CONC 32.1 g/dL (32.0-36.0); NUCLEATED RED BLOOD CELLS 0.2 % (0.0-0.19); PLATELET COUNT (AUTO) 201 K/uL (130-400); RED BLOOD CELL COUNT(AUTO) 3.76 MIL/uL (4.00-5.50); RED CELL DISTRIBUTION WIDTH 16.1 % (11.0-15.5); WHITE BLOOD COUNT (AUTO) 15.7 K/uL (4.8-10.8)
[2019-11-16 05:49] LABS: INR 1.07 (0.85-1.15); PARTIAL THROMBOPLASTIN TIME 28.5 SEC (26.3-35.5); PROTHROMBIN TIME 11.5 SEC (9.6-11.6)
[2019-11-16 05:51] LABS: BAND NEUTROPHILS % (MANUAL) 1 % (0-2); EOSINOPHILS % (MANUAL) 2 % (1-6); LYMPHOCYTES % (MANUAL) 12 % (22-44); MAN.DIFF COMMENT-IMPRESSION MANUAL DIFFERENTIAL; MONOCYTES % (MANUAL) 2 % (2-9); SEGMENTED NEUTROPHILS % 83 % (40-70)
[2019-11-16] MEDS: INSULIN HUMULIN R 100 UNIT/ML 3ML SQ SCH ×4 (06:00→18:00)
[2019-11-16 06:12] LABS: ALANINE AMINOTRANSFERASE 32 U/L (12-78); ALBUMIN 1.7 g/dL (3.5-5.0); ASPARTATE AMINOTRANSFERASE 56 U/L (10-37); BILIRUBIN,TOTAL 1.2 mg/dL (0.2-1.0); CARBON DIOXIDE 27 mmol/L (21-32); CHLORIDE 104 mmol/L (101-111); CREATININE 0.9 mg/dL (0.5-1.5); GLOMERULAR FILTR. RATE CALC 69 mL/min (>60); GLUCOSE,RANDOM 102 mg/dL (70-105); MYOGLOBIN 212 ng/mL (10-92); PHOSPHORUS 2.5 mg/dL (2.5-4.9); SODIUM SERUM 142 mmol/L (136-145); TOTAL PROTEIN, SERUM 6.5 g/dL (6.0-8.3); TROPONIN I < 0.04 ng/mL (0.00-0.06); UREA NITROGEN, BLOOD 25 mg/dL (7-18)
[2019-11-16 06:22] LABS: CREATINE KINASE, TOTAL 570 U/L (21-232)
[2019-11-16] MEDS: POTASSIUM CHLORIDE 20MEQ/100ML 100 ML IV PRN ×3 (06:40→10:55)
[2019-11-16] MEDS: FAMOTIDINE/PF 20 MG/2 ML VIAL IV SCH (08:43)
[2019-11-16] MEDS: FUROSEMIDE 10 MG/ML 4ML VIAL IVP SCH (09:01)
[2019-11-16] MEDS: CHLORHEXIDINE GLUCONATE 473 ML MOUTHWASH MM SCH ×2 (09:02→20:31)
[2019-11-16] MEDS: METOLAZONE 2.5 MG TABLET PO SCH (09:04)
[2019-11-16] MEDS: ASPIRIN 81MG TAB.CHEW PO SCH (09:05)
[2019-11-16] MEDS: ENOXAPARIN SODIUM 40 MG/0.4 ML SYRINGE SQ SCH (09:05)
[2019-11-16] MEDS: DOXYCYCLINE 100MG+NS 250ML 250 ML IV SCH ×2 (09:05→21:15)
[2019-11-16] MEDS: HYDROXYCHLOROQUINE SULFATE 200 MG TAB PO SCH (09:05)
[2019-11-16] MEDS: MAGNESIUM 2GM PREMIX 50ML 50 ML IV PRN (12:39)
[2019-11-16] MEDS: VANCOMYCIN 1.25 GM in SODIUM CHLORIDE 0.9% 250 ML IV SCH ×2 (12:59→20:30)
[2019-11-16] MEDS: FUROSEMIDE 10 MG/ML 4ML VIAL IV SCH (13:00)
--- NOTE | 2019-11-16 15:39 | NUR ---
DELORES PLAN PATIENT STILL PENDING COVID RESULTS. IN CRITICAL CARE ISOLATION. KEVIN WILL CONTINUE TO FOLLOW. Addendum: 11/16/19 at 1539 by BERTRAND BETANCUR RN CM Amended: Links added.
[2019-11-16] MEDS: ATORVASTATIN CALCIUM 20 MG TABLET PO SCH (20:32)
[2019-11-16] MEDS ORDERED: FAMOTIDINE 20MG TAB 20 MG TAB PO SCH (21:00)
[2019-11-16] MEDS: CISATRACURIUM BESYLATE 100 MG in SODIUM CHLORIDE 0.9% 100 ML IV SCH (22:04)
[2019-11-17] VITALS (61 sets, daily range): BP systolic 80–172; BP diastolic 38–109
[2019-11-17] MEDS: FUROSEMIDE 10 MG/ML 4ML VIAL IV SCH ×2 (00:52→12:02)
[2019-11-17] MEDS: ARTIFICIAL TEARS 3.5 GM OINTMENT OU SCH ×4 (01:44→18:49)
[2019-11-17] MEDS: POTASSIUM CHLORIDE 20MEQ/100ML 100 ML IV PRN ×3 (01:45→10:15)
[2019-11-17] MEDS: MIDAZOLAM 50MG-0.9% NS 50ML 50 ML BAG IV SCH ×4 (01:47→21:30)
[2019-11-17 04:03] LABS: ABG BASE EXCESS 8.7 mmol/L (-2.0-3.0); ABG HCO3 30.3 mmol/L (21.0-28.0); ABG OXYGEN SATURATION 99.6 % (95.0-99.0); ABG PCO2 32 mmHg (32-45)
[2019-11-17] MEDS: MEROPENEM 1 GM VIAL IVP SCH ×3 (04:10→20:25)
[2019-11-17] MEDS: FENTANYL 1000MCG+NS 100ML 100 ML IV SCH ×2 (04:11→21:31)
[2019-11-17 04:56] LABS: HEMATOCRIT 31.8 % (36-48); MEAN CORPUSCULAR HEMOGLOBIN 26.8 pg (27.0-33.0); MEAN CORPUSCULAR HGB CONC 32.4 g/dL (32.0-36.0); MEAN CORPUSCULAR VOLUME 82.6 fL (79-99); NUCLEATED RED BLOOD CELLS 0.1 % (0.0-0.19); PLATELET COUNT (AUTO) 241 K/uL (130-400); RED BLOOD CELL COUNT(AUTO) 3.85 MIL/uL (4.00-5.50); RED CELL DISTRIBUTION WIDTH 15.8 % (11.0-15.5); WHITE BLOOD COUNT (AUTO) 18.4 K/uL (4.8-10.8)
[2019-11-17 05:12] LABS: INR 0.98 (0.85-1.15); PARTIAL THROMBOPLASTIN TIME 26.7 SEC (26.3-35.5); PROTHROMBIN TIME 10.6 SEC (9.6-11.6)
[2019-11-17 05:16] LABS: ALBUMIN 1.9 g/dL (3.5-5.0); BILIRUBIN,TOTAL 0.7 mg/dL (0.2-1.0); MAGNESIUM 1.9 mg/dL (1.80-2.40); PHOSPHORUS 4.2 mg/dL (2.5-4.9); POTASSIUM 3.6 mmol/L (3.5-5.1); TOTAL PROTEIN, SERUM 7.1 g/dL (6.0-8.3)
[2019-11-17] MEDS: INSULIN HUMULIN R 100 UNIT/ML 3ML SQ SCH ×4 (05:41→17:54)
[2019-11-17] MEDS: FAMOTIDINE/PF 20 MG/2 ML VIAL IV SCH ×2 (08:15→20:25)
[2019-11-17] MEDS: METOLAZONE 2.5 MG TABLET PO SCH (08:15)
[2019-11-17] MEDS: HYDROXYCHLOROQUINE SULFATE 200 MG TAB PO SCH (08:15)
[2019-11-17] MEDS: ASPIRIN 81MG TAB.CHEW PO SCH (08:16)
[2019-11-17] MEDS: CHLORHEXIDINE GLUCONATE 473 ML MOUTHWASH MM SCH ×2 (08:16→20:26)
[2019-11-17] MEDS: ENOXAPARIN SODIUM 40 MG/0.4 ML SYRINGE SQ SCH (08:18)
[2019-11-17] MEDS: VANCOMYCIN 1.25 GM in SODIUM CHLORIDE 0.9% 250 ML IV SCH ×2 (08:19→20:54)
--- NOTE | 2019-11-17 09:39 | NUR ---
RD FOLLOW UP Still pending COVID-19 results. Pt in critical care isolation, having some improvement in underlying respiratory failure. Meds and labs reviewed. Skin is intact. Intubated and sedated. RD recommends to increase TF rate using Vital AF 1.2as tolerated Increase rate by 5mls every 5hrs, as tolerated Goal rate is 45ml/hr Tube Feeding recommendations left in pts chart Monitor BM and record, please RD will continue to monitor and follow up, thank you.
[2019-11-17] MEDS: MAGNESIUM 2GM PREMIX 50ML 50 ML IV PRN (10:14)
[2019-11-17] MEDS: DOXYCYCLINE 100MG+NS 250ML 250 ML IV SCH ×2 (12:01→22:34)
[2019-11-17] MEDS ORDERED: PHARMACY COMMUNICATION MISC ONE (15:45)
[2019-11-17] MEDS ORDERED: NOREPINEPHRINE BITARTRATE 8 MG/NS 250ML IV SCH ×4 (15:45→16:30)
--- NOTE | 2019-11-17 15:45 | NUR ---
ETT advanced 2cm and is now 21 cm at the lip Addendum: 11/17/19 at 1613 by ELYSSA HSIEH RN RN ETT advanced 2cm by RT and is now 21 cm at the lip
--- NOTE | 2019-11-17 16:00 | NUR ---
TOF 4:4 AT THIS TIME AND AT NOON; ATTEMPTING TO WEAN DOWN NIMBEX DRIP INSTRUCTED BY DR PETER, BUT IT HAS PROVEN TO BE A DIFFICULT PROCESS, PATIENT'S HR AND BP HAVE BEEN VERY LABILE. DOSAGE TO BE TITRATED POSSIBLE.
[2019-11-17] MEDS: ATORVASTATIN CALCIUM 20 MG TABLET PO SCH (20:25)
[2019-11-17] MEDS: CISATRACURIUM BESYLATE 100 MG in SODIUM CHLORIDE 0.9% 100 ML IV SCH (21:31)
[2019-11-18] VITALS (96 sets, daily range): BP systolic 77–188; BP diastolic 34–116
--- NOTE | 2019-11-18 00:25 | NUR ---
RHYTHM CHANGE HAS SVT UP TO 180 WITH INTERMITTENT RUNS OF NON SUSTAINED V TACH. SATS 98% BP 118/72 KATIE.WIRE ROPE SLING MAKER BEEPED FOR ORDERS
--- NOTE | 2019-11-18 00:35 | NUR ---
PROFESSIONAL SERVICES MANAGER CALL LUIS.PROFESSIONAL SERVICES MANAGER CALLS BACK AND INFORMED OF SVT 190 AND NON SUSTAINED V TACH. ORDERS RECEIVED AND CARRIED OUT.
[2019-11-18] MEDS: MIDAZOLAM 50MG-0.9% NS 50ML 50 ML BAG IV SCH ×3 (01:04→16:22)
[2019-11-18 01:27] LABS: CREATININE 0.9 mg/dL (0.5-1.5); MAGNESIUM 2.2 mg/dL (1.80-2.40); POTASSIUM 3.8 mmol/L (3.5-5.1)
[2019-11-18] MEDS: FENTANYL 1000MCG+NS 100ML 100 ML IV SCH ×3 (02:01→12:20)
[2019-11-18] MEDS: FUROSEMIDE 10 MG/ML 4ML VIAL IV SCH ×2 (02:42→14:07)
[2019-11-18] MEDS: ARTIFICIAL TEARS 3.5 GM OINTMENT OU SCH ×4 (02:43→18:57)
[2019-11-18] MEDS: MEROPENEM 1 GM VIAL IVP SCH ×3 (04:27→21:02)
[2019-11-18 04:45] LABS: ABG BASE EXCESS 3.9 mmol/L (-2.0-3.0); ABG HCO3 33.3 mmol/L (21.0-28.0); ABG OXYGEN SATURATION 93.5 % (95.0-99.0); ABG PCO2 76 mmHg (32-45)
[2019-11-18] MEDS ORDERED: VANCOMYCIN 1GM+NS 250ML 250 ML IV SCH (05:00)
[2019-11-18 05:11] LABS: HEMATOCRIT 39.3 % (36-48); MEAN CORPUSCULAR HEMOGLOBIN 26.9 pg (27.0-33.0); MEAN CORPUSCULAR VOLUME 86.8 fL (79-99); NUCLEATED RED BLOOD CELLS 0.2 % (0.0-0.19); PLATELET COUNT (AUTO) 310 K/uL (130-400); RED BLOOD CELL COUNT(AUTO) 4.53 MIL/uL (4.00-5.50); RED CELL DISTRIBUTION WIDTH 15.6 % (11.0-15.5); WHITE BLOOD COUNT (AUTO) 17.7 K/uL (4.8-10.8)
[2019-11-18 05:35] LABS: BAND NEUTROPHILS % (MANUAL) 3 % (0-2); BASOPHILS % (MANUAL) 1 % (0-2); EOSINOPHILS % (MANUAL) 1 % (1-6); LYMPHOCYTES % (MANUAL) 16 % (22-44); MAN.DIFF COMMENT-IMPRESSION MANUAL DIFFERENTIAL; METAMYELOCYTES % 1 % (0-0); MONOCYTES % (MANUAL) 7 % (2-9); SEGMENTED NEUTROPHILS % 71 % (40-70)
[2019-11-18 05:43] LABS: BILIRUBIN,TOTAL 0.4 mg/dL (0.2-1.0); MAGNESIUM 2.2 mg/dL (1.80-2.40); PHOSPHORUS 7.4 mg/dL (2.5-4.9); POTASSIUM 4.7 mmol/L (3.5-5.1)
[2019-11-18] MEDS: INSULIN HUMULIN R 100 UNIT/ML 3ML SQ SCH ×4 (06:00→18:00)
[2019-11-18] MEDS: FAMOTIDINE/PF 20 MG/2 ML VIAL IV SCH (09:04)
[2019-11-18] MEDS: METOLAZONE 2.5 MG TABLET PO SCH (09:06)
[2019-11-18] MEDS: CISATRACURIUM BESYLATE 100 MG in SODIUM CHLORIDE 0.9% 100 ML IV SCH ×2 (09:07→18:58)
[2019-11-18] MEDS: ASPIRIN 81MG TAB.CHEW PO SCH (09:07)
[2019-11-18] MEDS: ENOXAPARIN SODIUM 40 MG/0.4 ML SYRINGE SQ SCH (09:07)
[2019-11-18] MEDS: DOXYCYCLINE 100MG+NS 250ML 250 ML IV SCH ×2 (09:08→22:06)
[2019-11-18] MEDS: CHLORHEXIDINE GLUCONATE 473 ML MOUTHWASH MM SCH ×2 (09:18→21:03)
--- NOTE | 2019-11-18 10:00 | NUR ---
TOF 2/4
[2019-11-18] MEDS ORDERED: FUROSEMIDE 10 MG/ML 4ML VIAL IV SCH (10:45)
--- NOTE | 2019-11-18 11:00 | NUR ---
ST ELEVATION RE-CONSULTED CARDIOLOGY, SPOKE TO DR CHATTERJEE RECEIVED NEW ORDERS
[2019-11-18 11:35] LABS: POTASSIUM 4.2 mmol/L (3.5-5.1)
[2019-11-18 11:36] LABS: ALBUMIN 1.8 g/dL (3.5-5.0); BILIRUBIN,TOTAL 0.6 mg/dL (0.2-1.0); MAGNESIUM 1.9 mg/dL (1.80-2.40); PHOSPHORUS 4.7 mg/dL (2.5-4.9); TOTAL PROTEIN, SERUM 6.8 g/dL (6.0-8.3)
[2019-11-18 11:46] LABS: ABG BASE EXCESS 7.5 mmol/L (-2.0-3.0); ABG HCO3 32.4 mmol/L (21.0-28.0); ABG OXYGEN SATURATION 97.8 % (95.0-99.0); ABG PCO2 46 mmHg (32-45)
--- NOTE | 2019-11-18 12:00 | NUR ---
TOF 2/4
[2019-11-18] MEDS: PHARMACY COMMUNICATION MISC SCH ×2 (12:15→20:15)
--- NOTE | 2019-11-18 14:00 | NUR ---
TOF 0/4
[2019-11-18] MEDS: MAGNESIUM 2GM PREMIX 50ML 50 ML IV PRN (14:06)
[2019-11-18] MEDS ORDERED: ALBUMIN (HUMAN) 5% 250 ML IV SCH (14:15)
--- NOTE | 2019-11-18 15:00 | NUR ---
TOF 11/26
--- NOTE | 2019-11-18 16:00 | NUR ---
TOF 3/4
--- NOTE | 2019-11-18 18:00 | NUR ---
TOF 2/4
--- NOTE | 2019-11-18 20:00 | NUR ---
TOF 2:4
[2019-11-18] MEDS: ATORVASTATIN CALCIUM 20 MG TABLET PO SCH (21:03)
[2019-11-19] VITALS (54 sets, daily range): BP systolic 56–186; BP diastolic 31–106
[2019-11-19] MEDS: FUROSEMIDE 10 MG/ML 4ML VIAL IV SCH ×2 (00:08→12:10)
[2019-11-19] MEDS: MIDAZOLAM 50MG-0.9% NS 50ML 50 ML BAG IV SCH ×4 (00:09→20:41)
[2019-11-19] MEDS: FENTANYL 1000MCG+NS 100ML 100 ML IV SCH ×3 (00:10→20:42)
[2019-11-19] MEDS: ARTIFICIAL TEARS 3.5 GM OINTMENT OU SCH ×4 (00:38→17:40)
[2019-11-19] MEDS: MEROPENEM 1 GM VIAL IVP SCH ×3 (04:15→20:23)
[2019-11-19] MEDS: PHARMACY COMMUNICATION MISC SCH ×3 (04:15→20:34)
[2019-11-19 05:13] LABS: BASOPHILS % (AUTO) 0.3 % (0.0-5.0); EOSINOPHILS % (AUTO) 0.5 % (0.0-8.0); HEMATOCRIT 35.5 % (36-48); LYMPHOCYTES % (AUTO) 8.6 % (21.0-51.0); MEAN CORPUSCULAR HEMOGLOBIN 26.9 pg (27.0-33.0); MEAN CORPUSCULAR HGB CONC 31.3 g/dL (32.0-36.0); MONOCYTES % (AUTO) 6.1 % (3.0-13.0); NEUTROPHILS % (AUTO) 79.6 % (40.0-77.0); NUCLEATED RED BLOOD CELLS 0.3 % (0.0-0.19); PLATELET COUNT (AUTO) 284 K/uL (130-400); RED BLOOD CELL COUNT(AUTO) 4.13 MIL/uL (4.00-5.50); RED CELL DISTRIBUTION WIDTH 15.5 % (11.0-15.5); WHITE BLOOD COUNT (AUTO) 15.8 K/uL (4.8-10.8)
[2019-11-19 05:41] LABS: MAGNESIUM 2.5 mg/dL (1.80-2.40); PHOSPHORUS 4.3 mg/dL (2.5-4.9); POTASSIUM 3.8 mmol/L (3.5-5.1)
[2019-11-19] MEDS: INSULIN HUMULIN R 100 UNIT/ML 3ML SQ SCH ×4 (05:49→17:40)
[2019-11-19] MEDS: POTASSIUM CHLORIDE 20MEQ/100ML 100 ML IV PRN (05:54)
--- NOTE | 2019-11-19 06:25 | NUR ---
SVT RATE 180 BP 129 /78 SAT 98%. RAH SMITH CALLED AND MADE AWARE OF THIS AND ORDERS RECEIVED AND CARRIED OUT.
[2019-11-19] MEDS ORDERED: AMIODARONE HCL 150 MG in DEXTROSE 5%-WATER 100 ML IV SCH ×2 (06:30→14:00)
[2019-11-19] MEDS ORDERED: AMIODARONE HCL 900 MG in DEXTROSE 5%-WATER 500 ML IV SCH (06:30)
[2019-11-19] MEDS ORDERED: COMPOUND IV REFRIGERATED 1 EACH IVSOLN MISC PRN (07:00)
[2019-11-19] MEDS ORDERED: AMIODARONE HCL 450 MG in DEXTROSE 5%-WATER 250 ML IV SCH ×3 (07:00→14:00)
[2019-11-19 07:35] LABS: ABG BASE EXCESS 11.4 mmol/L (-2.0-3.0); ABG HCO3 39.7 mmol/L (21.0-28.0); ABG OXYGEN SATURATION 95.6 % (95.0-99.0); ABG PCO2 68 mmHg (32-45)
[2019-11-19] MEDS: PANTOPRAZOLE 40 MG/VIAL IVP SCH (08:14)
[2019-11-19] MEDS: ASPIRIN 81MG TAB.CHEW PO SCH (08:15)
[2019-11-19] MEDS ORDERED: AMIODARONE HCL 360 MG in DEXTROSE 5%-WATER 200 ML IV SCH ×4 (08:15)
[2019-11-19] MEDS: DOXYCYCLINE 100MG+NS 250ML 250 ML IV SCH ×2 (08:15→20:40)
[2019-11-19] MEDS: ENOXAPARIN SODIUM 40 MG/0.4 ML SYRINGE SQ SCH (08:23)
[2019-11-19] MEDS: CHLORHEXIDINE GLUCONATE 473 ML MOUTHWASH MM SCH ×2 (08:23→20:35)
--- NOTE | 2019-11-19 11:06 | NUR ---
DR SEN ROGERS MADE- INFORMED OF SVT EPISODE AND CORDARONE IV PROTOCOL. HE DC'D CORDARONE IV DRIP
[2019-11-19] MEDS ORDERED: ADENOSINE 3 MG/ML 2ML VIAL IV SCH (13:00)
[2019-11-19] MEDS: ADENOSINE 3 MG/ML 2ML VIAL IV SCH ×2 (13:01→13:15)
[2019-11-19] MEDS ORDERED: SODIUM CHLORIDE 0.9% 500ML 500 ML IV ONE (13:28)
[2019-11-19] MEDS ORDERED: SODIUM CHLORIDE 0.9% 500ML 500 ML IV SCH (13:30)
--- NOTE | 2019-11-19 14:48 | NUR ---
AFTER ADENOSINE GIVEN X 2 ROUNDS- PT DID NOT CONVERT . I NOTED ATRIAL WAVES WHEN I GAVE ADENOSINE. EKG DONE AND DR CHATTERJEE NOTIFIED. HE WILL CONTINUE CORDARONE WHICH I HAVE STARTED. PT NOW BACK IN SINUS RHYTHM RATE OF 104.
[2019-11-19 15:17] LABS: ABG BASE EXCESS 13.9 mmol/L (-2.0-3.0); ABG HCO3 35.7 mmol/L (21.0-28.0); ABG OXYGEN SATURATION 96.5 % (95.0-99.0); ABG PCO2 35 mmHg (32-45)
[2019-11-19] MEDS: AMIODARONE HCL 360 MG in DEXTROSE 5%-WATER 200 ML IV SCH ×2 (15:40→15:42)
[2019-11-19] MEDS: CISATRACURIUM BESYLATE 100 MG in SODIUM CHLORIDE 0.9% 100 ML IV SCH (15:40)
[2019-11-19] MEDS: PHENYLEPHRINE HCL 100 MG in SODIUM CHLORIDE 0.9% 250 ML IV SCH (16:46)
--- NOTE | 2019-11-19 16:59 | NUR ---
PT O2 SAT DEPRESSED TO 85%-NOW 92% AFTER DEEP SUCTIONING AND FIOI2 INCREASED TO 100% Addendum: 11/19/19 at 1701 by NADEEM BOYCE RN RN STILL CONTINUES WITH TACHYCARDIA OF 120-130
--- NOTE | 2019-11-19 17:49 | NUR ---
DR SOLER WAS NOTIFIED ABOUT DROP IN 02 SATS/VS/ABG'S---VENT CHANGES RECEIVED AND RELAYED TO RESPIRATORY THERAPY
[2019-11-19] MEDS: ATORVASTATIN CALCIUM 20 MG TABLET PO SCH (20:24)
[2019-11-19] MEDS: COLCHICINE 0.6 MG TABLET PO SCH (20:24)
[2019-11-20] VITALS (27 sets, daily range): BP systolic 80–146; BP diastolic 29–88
[2019-11-20] MEDS: FUROSEMIDE 10 MG/ML 4ML VIAL IV SCH ×2 (01:31→12:59)
[2019-11-20] MEDS: CISATRACURIUM BESYLATE 100 MG in SODIUM CHLORIDE 0.9% 100 ML IV SCH ×3 (01:31→21:29)
[2019-11-20] MEDS: ARTIFICIAL TEARS 3.5 GM OINTMENT OU SCH ×4 (01:31→18:08)
[2019-11-20] MEDS: PHARMACY COMMUNICATION MISC SCH ×3 (03:05→20:15)
[2019-11-20] MEDS: MEROPENEM 1 GM VIAL IVP SCH ×3 (03:05→20:08)
[2019-11-20 03:54] LABS: ABG BASE EXCESS 15.3 mmol/L (-2.0-3.0); ABG HCO3 38.3 mmol/L (21.0-28.0); ABG OXYGEN SATURATION 95.7 % (95.0-99.0); ABG PCO2 40 mmHg (32-45)
[2019-11-20] MEDS: MIDAZOLAM 50MG-0.9% NS 50ML 50 ML BAG IV SCH ×3 (05:49→21:27)
[2019-11-20] MEDS: FENTANYL 1000MCG+NS 100ML 100 ML IV SCH ×3 (05:50→21:28)
[2019-11-20] MEDS: INSULIN HUMULIN R 100 UNIT/ML 3ML SQ SCH ×4 (05:52→18:00)
[2019-11-20] MEDS: PHENYLEPHRINE HCL 100 MG in SODIUM CHLORIDE 0.9% 250 ML IV SCH ×3 (07:07→22:51)
--- NOTE | 2019-11-20 07:59 | NUR ---
PT CHEMICALLY PARALYZED AND SEDATED. VENT INTACT. NO ACUTE CHANGES. NO LONGER HAS TACHYCARDIA. NOW ON NEOSYNEPHRINE DRIP FOR BP SUPPORT
--- NOTE | 2019-11-20 08:02 | NUR ---
DR MANNING ROUNDS MADE-UPDATED ON STATUS. WILL START CORDARONE PER NG
[2019-11-20] MEDS: ASPIRIN 81MG TAB.CHEW PO SCH (09:10)
[2019-11-20] MEDS: COLCHICINE 0.6 MG TABLET PO SCH ×2 (09:10→20:07)
[2019-11-20] MEDS: CHLORHEXIDINE GLUCONATE 473 ML MOUTHWASH MM SCH ×2 (09:12→21:27)
[2019-11-20] MEDS: PANTOPRAZOLE 40 MG/VIAL IVP SCH (09:12)
[2019-11-20] MEDS: ENOXAPARIN SODIUM 40 MG/0.4 ML SYRINGE SQ SCH (09:12)
[2019-11-20] MEDS: DOXYCYCLINE 100MG+NS 250ML 250 ML IV SCH (09:12)
[2019-11-20] MEDS: AMIODARONE HCL 200 MG TABLET PO SCH ×3 (09:20→20:07)
[2019-11-20 09:54] LABS: BASOPHILS % (AUTO) 0.3 % (0.0-5.0); EOSINOPHILS % (AUTO) 1.4 % (0.0-8.0); MEAN CORPUSCULAR HEMOGLOBIN 27.1 pg (27.0-33.0); MEAN CORPUSCULAR HGB CONC 32.1 g/dL (32.0-36.0); MEAN CORPUSCULAR VOLUME 84.6 fL (79-99); MONOCYTES % (AUTO) 6.1 % (3.0-13.0); NEUTROPHILS % (AUTO) 72.7 % (40.0-77.0); NUCLEATED RED BLOOD CELLS 0.2 % (0.0-0.19); PLATELET COUNT (AUTO) 436 K/uL (130-400); RED BLOOD CELL COUNT(AUTO) 4.02 MIL/uL (4.00-5.50); RED CELL DISTRIBUTION WIDTH 15.9 % (11.0-15.5); WHITE BLOOD COUNT (AUTO) 24.9 K/uL (4.8-10.8)
[2019-11-20 10:08] LABS: CREATININE 1.1 mg/dL (0.5-1.5); MAGNESIUM 1.9 mg/dL (1.80-2.40)
[2019-11-20 11:01] LABS: POTASSIUM 2.4 mmol/L (3.5-5.1)
[2019-11-20] MEDS: MAGNESIUM 2GM PREMIX 50ML 50 ML IV PRN (11:47)
[2019-11-20] MEDS: POTASSIUM CHLORIDE 20MEQ/100ML 100 ML IV PRN ×5 (11:47→22:29)
[2019-11-20] MEDS: VASOPRESSIN 40 UNITS in SODIUM CHLORIDE 0.9% 40 ML IV SCH ×2 (11:49→21:30)
[2019-11-20] MEDS: POTASSIUM PHOS 15 mMOL+NS250ML 250 ML IV PRN (12:58)
--- NOTE | 2019-11-20 14:05 | NUR ---
DR SOLER MADE ROUNDS- GAVE STATUS REPORT ...ORDERS RECEIVED. ET ADVANCED 1 CM BY RT. RATE TO [address] SOLER....TURNED TO LET SIDE. NO SKIN BREAKDOWN.PT OPENS EYES TO PAINFUL STIMULI.
[2019-11-20] MEDS: ACETAZOLAMIDE SODIUM 500 MG VIAL IV SCH (15:25)
--- NOTE | 2019-11-20 16:15 | NUR ---
I DECREASED NIMBEX DRIP DIRECTED-PT WOKE UP BEGAN TO COUGH ON VENT MORE FREQUENTLY, BEGAN TO REACH FOR ET TUBE. SHE ALSO DROPPED HER SBP'S TO 70. I HAVE RESUMED NIMBEX PREVIOUSLY RUNNING
--- NOTE | 2019-11-20 17:15 | NUR ---
PT BP IMPROVED -MORE CALM.
[2019-11-20] MEDS: POLYETHYLENE GLYCOL 3350 17 GM POWD.PACK PO SCH (20:07)
[2019-11-20] MEDS: ATORVASTATIN CALCIUM 20 MG TABLET PO SCH (20:10)
[2019-11-20 22:06] LABS: PHOSPHORUS 4.1 mg/dL (2.5-4.9)
[2019-11-20 22:10] LABS: POTASSIUM 2.5 mmol/L (3.5-5.1)
[2019-11-21] VITALS (64 sets, daily range): BP systolic 64–154; BP diastolic 25–89
[2019-11-21] MEDS: FUROSEMIDE 10 MG/ML 4ML VIAL IV SCH ×3 (00:18→23:38)
[2019-11-21] MEDS: ARTIFICIAL TEARS 3.5 GM OINTMENT OU SCH ×4 (00:20→19:15)
[2019-11-21] MEDS: POTASSIUM CHLORIDE 20MEQ/100ML 100 ML IV PRN ×7 (02:10→23:21)
[2019-11-21] MEDS: ACETAZOLAMIDE SODIUM 500 MG VIAL IV SCH ×2 (02:12→13:12)
[2019-11-21 03:38] LABS: ABG BASE EXCESS 12.4 mmol/L (-2.0-3.0); ABG HCO3 36.4 mmol/L (21.0-28.0); ABG OXYGEN SATURATION 99.3 % (95.0-99.0); ABG PCO2 43 mmHg (32-45)
[2019-11-21] MEDS: MEROPENEM 1 GM VIAL IVP SCH ×3 (03:49→19:39)
[2019-11-21] MEDS: PHARMACY COMMUNICATION MISC SCH ×3 (04:15→19:13)
[2019-11-21 04:50] LABS: BASOPHILS % (AUTO) 0.4 % (0.0-5.0); EOSINOPHILS % (AUTO) 1.3 % (0.0-8.0); HEMATOCRIT 36.1 % (36-48); LYMPHOCYTES % (AUTO) 11.2 % (21.0-51.0); MEAN CORPUSCULAR HEMOGLOBIN 26.9 pg (27.0-33.0); MEAN CORPUSCULAR HGB CONC 31.9 g/dL (32.0-36.0); MEAN CORPUSCULAR VOLUME 84.5 fL (79-99); MONOCYTES % (AUTO) 7.2 % (3.0-13.0); NEUTROPHILS % (AUTO) 76.1 % (40.0-77.0); NUCLEATED RED BLOOD CELLS 0.1 % (0.0-0.19); PLATELET COUNT (AUTO) 475 K/uL (130-400); RED BLOOD CELL COUNT(AUTO) 4.27 MIL/uL (4.00-5.50); WHITE BLOOD COUNT (AUTO) 25.6 K/uL (4.8-10.8)
[2019-11-21 05:05] LABS: CREATININE 0.9 mg/dL (0.5-1.5); PHOSPHORUS 4.1 mg/dL (2.5-4.9); POTASSIUM 3.5 mmol/L (3.5-5.1)
[2019-11-21] MEDS: INSULIN HUMULIN R 100 UNIT/ML 3ML SQ SCH ×4 (05:28→18:00)
[2019-11-21] MEDS ORDERED: PHARMACY COMMUNICATION MISC SCH ×4 (06:45→20:15)
[2019-11-21] MEDS: MIDAZOLAM 50MG-0.9% NS 50ML 50 ML BAG IV SCH ×3 (08:04→20:41)
[2019-11-21] MEDS: PANTOPRAZOLE 40 MG/VIAL IVP SCH (09:00)
[2019-11-21] MEDS: ENOXAPARIN SODIUM 40 MG/0.4 ML SYRINGE SQ SCH (09:00)
[2019-11-21] MEDS: POLYETHYLENE GLYCOL 3350 17 GM POWD.PACK PO SCH ×2 (09:00→19:39)
[2019-11-21] MEDS: COLCHICINE 0.6 MG TABLET PO SCH ×2 (09:00→19:39)
[2019-11-21] MEDS: ASPIRIN 81MG TAB.CHEW PO SCH (09:00)
[2019-11-21] MEDS: AMIODARONE HCL 200 MG TABLET PO SCH ×3 (09:00→19:39)
[2019-11-21] MEDS: CHLORHEXIDINE GLUCONATE 473 ML MOUTHWASH MM SCH ×2 (09:00→19:40)
[2019-11-21] MEDS: FENTANYL 1000MCG+NS 100ML 100 ML IV SCH ×2 (13:04→20:41)
[2019-11-21] MEDS: METOCLOPRAMIDE 10 MG/2 ML VIAL IVP SCH ×2 (15:00→23:21)
[2019-11-21 15:46] LABS: PHOSPHORUS 3.1 mg/dL (2.5-4.9)
[2019-11-21 15:47] LABS: POTASSIUM 2.1 mmol/L (3.5-5.1)
[2019-11-21] MEDS: ATORVASTATIN CALCIUM 20 MG TABLET PO SCH (19:39)
[2019-11-21] MEDS: VASOPRESSIN 40 UNITS in SODIUM CHLORIDE 0.9% 40 ML IV SCH (19:42)
[2019-11-21] MEDS: PHENYLEPHRINE HCL 100 MG in SODIUM CHLORIDE 0.9% 250 ML IV SCH (20:41)
[2019-11-22] VITALS (62 sets, daily range): BP systolic 92–165; BP diastolic 44–98
[2019-11-22] MEDS: ARTIFICIAL TEARS 3.5 GM OINTMENT OU SCH ×4 (00:17→19:15)
[2019-11-22] MEDS: PHARMACY COMMUNICATION MISC SCH ×3 (00:18→20:15)
[2019-11-22] MEDS: POTASSIUM CHLORIDE 20MEQ/100ML 100 ML IV PRN ×5 (00:24→22:37)
[2019-11-22] MEDS: CISATRACURIUM BESYLATE 100 MG in SODIUM CHLORIDE 0.9% 100 ML IV SCH ×2 (02:42→19:35)
[2019-11-22] MEDS: PHENYLEPHRINE HCL 100 MG in SODIUM CHLORIDE 0.9% 250 ML IV SCH ×2 (02:44→19:36)
[2019-11-22] MEDS: MIDAZOLAM 50MG-0.9% NS 50ML 50 ML BAG IV SCH ×3 (03:04→22:37)
[2019-11-22] MEDS: MEROPENEM 1 GM VIAL IVP SCH (03:33)
[2019-11-22 04:29] LABS: BASOPHILS % (AUTO) 0.4 % (0.0-5.0); EOSINOPHILS % (AUTO) 1.2 % (0.0-8.0); HEMATOCRIT 34.9 % (36-48); LYMPHOCYTES % (AUTO) 9.9 % (21.0-51.0); MEAN CORPUSCULAR HEMOGLOBIN 26.5 pg (27.0-33.0); MEAN CORPUSCULAR HGB CONC 32.1 g/dL (32.0-36.0); MEAN CORPUSCULAR VOLUME 82.5 fL (79-99); NEUTROPHILS % (AUTO) 77.1 % (40.0-77.0); NUCLEATED RED BLOOD CELLS 0.1 % (0.0-0.19); PLATELET COUNT (AUTO) 463 K/uL (130-400); RED BLOOD CELL COUNT(AUTO) 4.23 MIL/uL (4.00-5.50); RED CELL DISTRIBUTION WIDTH 16.1 % (11.0-15.5); WHITE BLOOD COUNT (AUTO) 22.2 K/uL (4.8-10.8)
[2019-11-22 04:42] LABS: CREATININE 0.9 mg/dL (0.5-1.5); MAGNESIUM 1.8 mg/dL (1.80-2.40); PHOSPHORUS 4.3 mg/dL (2.5-4.9); POTASSIUM 3.4 mmol/L (3.5-5.1)
[2019-11-22] MEDS: MAGNESIUM 2GM PREMIX 50ML 50 ML IV PRN (04:48)
[2019-11-22] MEDS: INSULIN HUMULIN R 100 UNIT/ML 3ML SQ SCH ×4 (05:04→17:55)
[2019-11-22] MEDS: METOCLOPRAMIDE 10 MG/2 ML VIAL IVP SCH ×3 (06:06→22:15)
[2019-11-22 06:57] LABS: ABG BASE EXCESS -0.6 mmol/L (-2.0-3.0); ABG HCO3 21.3 mmol/L (21.0-28.0); ABG PCO2 28 mmHg (32-45)
[2019-11-22] MEDS: AMIODARONE HCL 200 MG TABLET PO SCH ×3 (08:57→20:01)
[2019-11-22] MEDS: ASPIRIN 81MG TAB.CHEW PO SCH (08:58)
[2019-11-22] MEDS: ENOXAPARIN SODIUM 40 MG/0.4 ML SYRINGE SQ SCH (08:59)
[2019-11-22] MEDS: PANTOPRAZOLE 40 MG/VIAL IVP SCH (09:00)
[2019-11-22] MEDS: POLYETHYLENE GLYCOL 3350 17 GM POWD.PACK PO SCH ×2 (09:00→22:11)
[2019-11-22] MEDS: CHLORHEXIDINE GLUCONATE 473 ML MOUTHWASH MM SCH ×2 (09:05→21:00)
[2019-11-22] MEDS: COLCHICINE 0.6 MG TABLET PO SCH ×2 (09:06→20:01)
--- NOTE | 2019-11-22 10:26 | NUR ---
DC PLAN PATIENT STILL IN ADVANCED ISOLATION PENDING COVID RESULTS. Addendum: 11/22/19 at 1027 by BERTRAND BETANCUR RN CM Amended: Links added.
--- NOTE | 2019-11-22 10:44 | NUR ---
HIGH RESIDUALS Rn reported 350ml residuals this am. Tube feeding currently on hold. No BM recorded. RD recommends to hold TF for 24hrs Recommend Reglan administration RD will follow up tomorrow.
[2019-11-22] MEDS: FENTANYL 1000MCG+NS 100ML 100 ML IV SCH ×2 (12:07→22:08)
[2019-11-22] MEDS: FUROSEMIDE 10 MG/ML 4ML VIAL IV SCH (13:11)
[2019-11-22] MEDS ORDERED: PHARMACY COMMUNICATION MISC SCH (19:00)
[2019-11-22] MEDS: ATORVASTATIN CALCIUM 20 MG TABLET PO SCH (20:01)
[2019-11-22] MEDS ORDERED: SODIUM CHLORIDE 0.9% 250 ML IV ONE (23:13)
[2019-11-22] MEDS ORDERED: PHENYLEPHRINE HCL 10 MG/ML 1ML VIAL IV ONE (23:15)
[2019-11-23] VITALS (73 sets, daily range): BP systolic 78–160; BP diastolic 43–95
[2019-11-23] MEDS: ARTIFICIAL TEARS 3.5 GM OINTMENT OU SCH ×4 (01:15→22:04)
[2019-11-23] MEDS: FUROSEMIDE 10 MG/ML 4ML VIAL IV SCH ×2 (02:05→13:05)
[2019-11-23] MEDS: CISATRACURIUM BESYLATE 100 MG in SODIUM CHLORIDE 0.9% 100 ML IV SCH (02:07)
[2019-11-23] MEDS: INSULIN HUMULIN R 100 UNIT/ML 3ML SQ SCH ×4 (06:00→17:31)
[2019-11-23 06:32] LABS: BASOPHILS % (AUTO) 0.6 % (0.0-5.0); EOSINOPHILS % (AUTO) 0.5 % (0.0-8.0); HEMATOCRIT 42.8 % (36-48); LYMPHOCYTES % (AUTO) 10.5 % (21.0-51.0); MEAN CORPUSCULAR HEMOGLOBIN 26.6 pg (27.0-33.0); MEAN CORPUSCULAR HGB CONC 30.6 g/dL (32.0-36.0); MONOCYTES % (AUTO) 8.8 % (3.0-13.0); NEUTROPHILS % (AUTO) 76.4 % (40.0-77.0); PLATELET COUNT (AUTO) 545 K/uL (130-400); RED BLOOD CELL COUNT(AUTO) 4.92 MIL/uL (4.00-5.50); RED CELL DISTRIBUTION WIDTH 17.2 % (11.0-15.5); WHITE BLOOD COUNT (AUTO) 18.4 K/uL (4.8-10.8)
[2019-11-23 06:43] LABS: CARBON DIOXIDE 28 mmol/L (21-32); CHLORIDE 104 mmol/L (101-111); CREATININE 0.8 mg/dL (0.5-1.5); GLOMERULAR FILTR. RATE CALC 79 mL/min (>60); GLUCOSE,RANDOM 116 mg/dL (70-105); PHOSPHORUS 4.2 mg/dL (2.5-4.9); POTASSIUM 4.4 mmol/L (3.5-5.1); SODIUM SERUM 140 mmol/L (136-145); UREA NITROGEN, BLOOD 45 mg/dL (7-18)
[2019-11-23] MEDS: FENTANYL 1000MCG+NS 100ML 100 ML IV SCH ×2 (06:46→20:46)
[2019-11-23 07:08] LABS: B-TYPE NATRIURETIC PEPTIDE 950 pg/mL (0-100)
[2019-11-23] MEDS: ASPIRIN 81MG TAB.CHEW PO SCH (07:42)
[2019-11-23] MEDS: PANTOPRAZOLE 40 MG/VIAL IVP SCH (07:43)
[2019-11-23] MEDS: CHLORHEXIDINE GLUCONATE 473 ML MOUTHWASH MM SCH ×2 (07:43→21:12)
[2019-11-23] MEDS: AMIODARONE HCL 200 MG TABLET PO SCH ×4 (07:44→21:11)
[2019-11-23] MEDS: ENOXAPARIN SODIUM 40 MG/0.4 ML SYRINGE SQ SCH (07:45)
[2019-11-23] MEDS: METOCLOPRAMIDE 10 MG/2 ML VIAL IVP SCH ×3 (07:45→23:08)
[2019-11-23] MEDS: COLCHICINE 0.6 MG TABLET PO SCH ×2 (07:46→21:11)
[2019-11-23 08:22] LABS: ABG BASE EXCESS -1.1 mmol/L (-2.0-3.0); ABG HCO3 24.5 mmol/L (21.0-28.0); ABG OXYGEN SATURATION 92.4 % (95.0-99.0); ABG PCO2 44 mmHg (32-45)
[2019-11-23] MEDS: POLYETHYLENE GLYCOL 3350 17 GM POWD.PACK PO SCH ×2 (08:46→21:22)
[2019-11-23] MEDS: PHARMACY COMMUNICATION MISC SCH ×3 (09:41→20:15)
[2019-11-23] MEDS: MIDAZOLAM 50MG-0.9% NS 50ML 50 ML BAG IV SCH (10:57)
--- NOTE | 2019-11-23 13:00 | NUR ---
DR. ROLLE NOTIFIED. DR. ROLLE NOTIFIED OF NEGATIVE COVID RESULTS. HE STATES HE WANTS PATIENT TO BE EXTUBATED BEFORE TAKING PATIENT TO THE OR. HE WAS NOTIFIED OF PATIENT'S CURRENT CONDITION AND SAID HE WILL CALL DR. CROSS AND DISCUSS HIS PLANS. NO ORDERS GIVEN.
--- NOTE | 2019-11-23 18:30 | NUR ---
PATIENT TRANSFERRED. PATIENT TRANSFERRED AT 1800. BEDSIDE REPORT GIVEN TO JAYY CASTANO. PICTURES OF PRESSURE INJURIES (BILATERAL CHEEKS FROM ETT LÓPEZ AND BUTTOCKS) WERE TAKEN. PICTURES PENDING TO BE PRINTED, NO INK IN PRINTER. CHARGE NURSE NOTIFIED.
[2019-11-23] MEDS: POTASSIUM CHLORIDE 20MEQ/100ML 100 ML IV PRN ×2 (20:46→23:34)
[2019-11-23] MEDS: ATORVASTATIN CALCIUM 20 MG TABLET PO SCH (21:11)
[2019-11-23] MEDS: PHENYLEPHRINE HCL 100 MG in SODIUM CHLORIDE 0.9% 250 ML IV SCH (23:33)
[2019-11-24] VITALS (61 sets, daily range): BP systolic 80–154; BP diastolic 37–97
[2019-11-24] MEDS: FUROSEMIDE 10 MG/ML 4ML VIAL IV SCH ×2 (02:49→11:43)
[2019-11-24] MEDS: MIDAZOLAM 50MG-0.9% NS 50ML 50 ML BAG IV SCH ×2 (03:10→15:53)
[2019-11-24] MEDS: ARTIFICIAL TEARS 3.5 GM OINTMENT OU SCH ×4 (03:11→20:07)
[2019-11-24] MEDS: PHARMACY COMMUNICATION MISC SCH ×3 (04:15→20:15)
[2019-11-24] MEDS: FENTANYL 1000MCG+NS 100ML 100 ML IV SCH ×3 (05:14→23:15)
[2019-11-24 05:25] LABS: BASOPHILS % (AUTO) 0.6 % (0.0-5.0); EOSINOPHILS % (AUTO) 0.9 % (0.0-8.0); HEMATOCRIT 39.8 % (36-48); LYMPHOCYTES % (AUTO) 13.5 % (21.0-51.0); MEAN CORPUSCULAR HEMOGLOBIN 26.5 pg (27.0-33.0); MEAN CORPUSCULAR HGB CONC 31.4 g/dL (32.0-36.0); MEAN CORPUSCULAR VOLUME 84.5 fL (79-99); MONOCYTES % (AUTO) 9.5 % (3.0-13.0); NUCLEATED RED BLOOD CELLS 0.1 % (0.0-0.19); PLATELET COUNT (AUTO) 522 K/uL (130-400); RED BLOOD CELL COUNT(AUTO) 4.71 MIL/uL (4.00-5.50); WHITE BLOOD COUNT (AUTO) 19.9 K/uL (4.8-10.8)
[2019-11-24 05:33] LABS: INR 1.07 (0.85-1.15); PARTIAL THROMBOPLASTIN TIME 26.8 SEC (26.3-35.5); PROTHROMBIN TIME 11.5 SEC (9.6-11.6)
[2019-11-24 05:53] LABS: ALBUMIN 2.6 g/dL (3.5-5.0); BILIRUBIN,TOTAL 0.5 mg/dL (0.2-1.0); CREATININE 1.2 mg/dL (0.5-1.5); TOTAL PROTEIN, SERUM 8.6 g/dL (6.0-8.3)
[2019-11-24 05:54] LABS: POTASSIUM 2.7 mmol/L (3.5-5.1)
[2019-11-24] MEDS: INSULIN HUMULIN R 100 UNIT/ML 3ML SQ SCH ×4 (06:00→18:00)
[2019-11-24] MEDS: POTASSIUM CHLORIDE 20MEQ/100ML 100 ML IV PRN ×4 (06:01→23:16)
--- NOTE | 2019-11-24 06:45 | NUR ---
DR. CHATTERJEE 1568 DR[address] CHATTERJEE CALLED TO KEEP PT NPO AND OBTAIN CONSENT FOR LEFT HEART CATH/ANGIOGRAM
[2019-11-24] MEDS ORDERED: SODIUM CHLORIDE 0.9% 500ML 500 ML IV SCH (06:48)
[2019-11-24 08:01] LABS: ABG HCO3 21.5 mmol/L (21.0-28.0); ABG OXYGEN SATURATION 98.5 % (95.0-99.0); ABG PCO2 22 mmHg (32-45)
[2019-11-24] MEDS ORDERED: NITROGLYCERIN 2 MG/VIAL VIAL IV ONE (08:30)
[2019-11-24] MEDS ORDERED: LIDOCAINE HCL 2% 20ML ONE (08:30)
[2019-11-24] MEDS ORDERED: HEPARIN SODIUM 1000UNIT/ML 10ML VIAL ONE (08:30)
[2019-11-24] MEDS ORDERED: IOHEXOL-350 50ML VIAL IV ONE (08:30)
[2019-11-24] MEDS ORDERED: IOHEXOL 350 MG/ML 100ML INFUS..BTL IV ONE ×2 (08:30→12:12)
[2019-11-24] MEDS: POLYETHYLENE GLYCOL 3350 17 GM POWD.PACK PO SCH ×2 (09:00→21:12)
[2019-11-24] MEDS: PHENYLEPHRINE HCL 100 MG in SODIUM CHLORIDE 0.9% 250 ML IV SCH ×2 (09:10→23:16)
[2019-11-24] MEDS: PANTOPRAZOLE 40 MG/VIAL IVP SCH (11:42)
[2019-11-24] MEDS: ASPIRIN 81MG TAB.CHEW PO SCH (11:43)
[2019-11-24] MEDS: COLCHICINE 0.6 MG TABLET PO SCH ×2 (11:43→21:12)
[2019-11-24] MEDS: AMIODARONE HCL 200 MG TABLET PO SCH ×3 (11:43→21:12)
[2019-11-24] MEDS: METOCLOPRAMIDE 10 MG/2 ML VIAL IVP SCH ×3 (11:45→23:14)
[2019-11-24] MEDS: CHLORHEXIDINE GLUCONATE 473 ML MOUTHWASH MM SCH ×2 (11:46→20:07)
[2019-11-24] MEDS ORDERED: METOPROLOL TARTRATE 1 MG/ML 5ML VIAL IV ONE (12:36)
--- NOTE | 2019-11-24 16:48 | NUR ---
RD FOLLOW UP Pt s/p Cath placement today. NPO status as this AM, although Tube feeding Vital AF 1.2@35mls as per EMR. Recommend to continue tube feeding regimen as medically feasible. 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 RD to continue to monitor. Addendum: 11/24/19 at [address] Amended: Links added.
--- NOTE | 2019-11-24 17:21 | NUR ---
Pictures of wounds taken this afternoon
--- NOTE | 2019-11-24 18:30 | NUR ---
called pharmacy for ZYVOX, pending to bring
[2019-11-24] MEDS: ATORVASTATIN CALCIUM 20 MG TABLET PO SCH (21:12)
[2019-11-25] VITALS (50 sets, daily range): BP systolic 79–201; BP diastolic 31–96
[2019-11-25] MEDS: MIDAZOLAM 50MG-0.9% NS 50ML 50 ML BAG IV SCH ×3 (00:08→10:56)
[2019-11-25] MEDS: FUROSEMIDE 10 MG/ML 4ML VIAL IV SCH ×2 (00:09→13:18)
[2019-11-25] MEDS: POTASSIUM CHLORIDE 20MEQ/100ML 100 ML IV PRN ×6 (00:40→23:21)
[2019-11-25] MEDS: ARTIFICIAL TEARS 3.5 GM OINTMENT OU SCH ×4 (01:46→18:57)
[2019-11-25] MEDS: PHARMACY COMMUNICATION MISC SCH (04:15)
[2019-11-25 04:46] LABS: BASOPHILS % (AUTO) 0.8 % (0.0-5.0); HEMATOCRIT 35.2 % (36-48); LYMPHOCYTES % (AUTO) 18.5 % (21.0-51.0); MEAN CORPUSCULAR HEMOGLOBIN 26.9 pg (27.0-33.0); MEAN CORPUSCULAR HGB CONC 31.8 g/dL (32.0-36.0); MEAN CORPUSCULAR VOLUME 84.4 fL (79-99); MONOCYTES % (AUTO) 11.9 % (3.0-13.0); NEUTROPHILS % (AUTO) 67.1 % (40.0-77.0); PLATELET COUNT (AUTO) 458 K/uL (130-400); RED BLOOD CELL COUNT(AUTO) 4.17 MIL/uL (4.00-5.50); RED CELL DISTRIBUTION WIDTH 16.8 % (11.0-15.5); WHITE BLOOD COUNT (AUTO) 13.6 K/uL (4.8-10.8)
[2019-11-25 05:00] LABS: CREATININE 1.2 mg/dL (0.5-1.5); PHOSPHORUS 2.3 mg/dL (2.5-4.9); POTASSIUM 3.6 mmol/L (3.5-5.1)
[2019-11-25] MEDS: FENTANYL 1000MCG+NS 100ML 100 ML IV SCH (05:53)
[2019-11-25] MEDS: INSULIN HUMULIN R 100 UNIT/ML 3ML SQ SCH ×3 (06:00→11:03)
[2019-11-25] MEDS: METOCLOPRAMIDE 10 MG/2 ML VIAL IVP SCH ×3 (06:31→21:48)
[2019-11-25 07:09] LABS: ABG BASE EXCESS -0.1 mmol/L (-2.0-3.0); ABG HCO3 18.9 mmol/L (21.0-28.0); ABG OXYGEN SATURATION 99.4 % (95.0-99.0); ABG PCO2 20 mmHg (32-45)
[2019-11-25] MEDS: PHENYLEPHRINE HCL 100 MG in SODIUM CHLORIDE 0.9% 250 ML IV SCH (08:05)
[2019-11-25] MEDS: POTASSIUM PHOS 15 mMOL+NS250ML 250 ML IV PRN (08:06)
[2019-11-25] MEDS: AMIODARONE HCL 200 MG TABLET PO SCH ×3 (09:00→19:39)
[2019-11-25] MEDS: ASPIRIN 81MG TAB.CHEW PO SCH (09:00)
[2019-11-25] MEDS ORDERED: AMINOCAPROIC ACID 15,000 MG in SODIUM CHLORIDE 0.9% 500ML 500 ML IV PRN (09:00)
[2019-11-25] MEDS ORDERED: EPINEPHRINE 10 MG in SODIUM CHLORIDE 0.9% 240 ML IV PRN (09:00)
[2019-11-25] MEDS: COLCHICINE 0.6 MG TABLET PO SCH ×2 (09:00→19:39)
[2019-11-25] MEDS ORDERED: NOREPINEPHRINE BITARTRATE 8 MG in DEXTROSE 5%-WATER 250 ML IV PRN (09:00)
[2019-11-25] MEDS: POLYETHYLENE GLYCOL 3350 17 GM POWD.PACK PO SCH ×2 (09:00→19:42)
[2019-11-25] MEDS: PANTOPRAZOLE 40 MG/VIAL IVP SCH (09:36)
[2019-11-25] MEDS ORDERED: CEFAZOLIN SODIUM 1 GM VIAL ONE ×2 (09:46→13:56)
[2019-11-25] MEDS: CHLORHEXIDINE GLUCONATE 473 ML MOUTHWASH MM SCH ×2 (09:47→19:39)
[2019-11-25] MEDS ORDERED: NITROGLYCERIN 50 MG/D5% WATER 1 BOT ONE (09:59)
[2019-11-25] MEDS ORDERED: PROTAMINE SULFATE 10 MG/ML 25ML VIAL IV ONE (13:14)
[2019-11-25] MEDS ORDERED: ESMOLOL HCL 10 MG/ML 10 ML VIAL ONE (13:14)
[2019-11-25] MEDS ORDERED: LIDOCAINE PF 2% 5ML ABBOJECT ONE (13:14)
[2019-11-25] MEDS ORDERED: HEPARIN SODIUM 1000UNIT/ML 10ML VIAL ONE (13:15)
[2019-11-25] MEDS ORDERED: EPINEPHRINE 1 MG/ML AMPULE ONE (13:15)
[2019-11-25] MEDS ORDERED: AMINOCAPROIC ACID 250 MG/ML 20 ML VIAL IV ONE (13:15)
[2019-11-25] MEDS ORDERED: FENTANYL CITRATE PF 50 MCG/1 ML 20ML VIAL IJ ONE (13:15)
[2019-11-25] MEDS ORDERED: ROCURONIUM 10MG/1ML SYR 10 MG/ML ML ONE ×2 (13:15→15:54)
[2019-11-25] MEDS ORDERED: NOREPINEPHRINE BITARTRATE 1 MG/1 ML ML IV ONE (13:15)
[2019-11-25] MEDS ORDERED: SODIUM BICARB 50MEQ 50ML VIAL ONE (13:15)
[2019-11-25] MEDS ORDERED: MIDAZOLAM HCL 1 MG/ML 2ML VIAL ONE (13:15)
[2019-11-25] MEDS ORDERED: DELNIDO FORMULA 1 BAG IV ONE (13:53)
[2019-11-25] MEDS ORDERED: ROPIVACAINE 0.2% 2MG/ML 100ML VIAL IJ ONE (14:04)
[2019-11-25 14:20] LABS: ABG BASE EXCESS -6.5 mmol/L (-2.0-3.0); ABG HCO3 18.3 mmol/L (21.0-28.0); ABG OXYGEN SATURATION 98.6 % (95.0-99.0); ABG PCO2 34 mmHg (32-45)
[2019-11-25] MEDS ORDERED: ROPIVACAINE 0.5% 5MG/ML 30ML IJ ONE (14:40)
[2019-11-25] MEDS ORDERED: SODIUM BICARB 8.4% 50ML SYRINGE ONE (14:54)
[2019-11-25 16:02] LABS: ABG HCO3 22.2 mmol/L (21.0-28.0); ABG OXYGEN SATURATION 98.5 % (95.0-99.0); ABG PCO2 30 mmHg (32-45)
[2019-11-25] MEDS ORDERED: SODIUM CHLORIDE 0.9% 500ML 500 ML IV SCH (16:18)
[2019-11-25 16:20] LABS: ABG HCO3 20.7 mmol/L (21.0-28.0); ABG OXYGEN SATURATION 98.1 % (95.0-99.0); ABG PCO2 28 mmHg (32-45)
[2019-11-25] MEDS ORDERED: AMIODARONE HCL 50 MG/ML 3 ML VIAL ONE (16:27)
[2019-11-25] MEDS ORDERED: GLUCAGON 1MG KIT 1 MG ML IM PRN (16:30)
[2019-11-25] MEDS ORDERED: MORPHINE SULFATE 2 MG/ML 1ML SYG IV PRN (16:30)
[2019-11-25] MEDS ORDERED: SODIUM CHLORIDE 0.9% 1000ML 1,000 ML IV SCH (16:30)
[2019-11-25] MEDS ORDERED: ACETAMINOPHEN 650 MG SUPPOSITORY RC PRN (16:30)
[2019-11-25] MEDS ORDERED: NOREPINEPHRINE 4MG/NS 250ML 250 ML IV PRN (16:30)
[2019-11-25] MEDS ORDERED: SODIUM CHLORIDE 0.9% 10 ML VIAL IVP PRN (16:30)
[2019-11-25] MEDS ORDERED: EPINEPHRINE 10 MG in DEXTROSE 5%-WATER 250 ML IV PRN (16:30)
[2019-11-25] MEDS ORDERED: POTASSIUM PHOS 15 mMOL+NS250ML 250 ML IV PRN (16:30)
[2019-11-25] MEDS ORDERED: ALBUMIN (HUMAN) 5% 250 ML IV PRN (16:30)
[2019-11-25] MEDS ORDERED: INSULIN REGULAR, HUMAN 3ML 100 UNIT in SODIUM CHLORIDE 0.9% 99 ML IV SCH ×2 (16:30)
[2019-11-25] MEDS ORDERED: SODIUM BICARB 50MEQ 50ML VIAL IV PRN (16:30)
[2019-11-25] MEDS ORDERED: MORPHINE SULFATE 4 MG/1ML SYG IV PRN (16:30)
[2019-11-25] MEDS ORDERED: ACETAMINOPHEN 325 MG TAB PO PRN (16:30)
[2019-11-25] MEDS ORDERED: DEXTROSE 50%-WATER 50 ML DISP.SYRIN IV PRN (16:30)
[2019-11-25] MEDS ORDERED: ONDANSETRON HCL 4 MG/2 ML VIAL IV PRN (16:30)
[2019-11-25] MEDS ORDERED: SODIUM CHLORIDE 0.9% 250 ML IV PRN (16:30)
[2019-11-25] MEDS ORDERED: NITROGLYCERIN 50 MG/D5% WATER 250 BOT IV SCH (16:30)
[2019-11-25] MEDS ORDERED: TRAMADOL HCL 50 MG TABLET PO PRN ×2 (16:30)
[2019-11-25] MEDS ORDERED: MAGNESIUM 2GM PREMIX 50ML 50 ML IV PRN (16:30)
[2019-11-25] MEDS ORDERED: AMINOCAPROIC ACID 15,000 MG in SODIUM CHLORIDE 0.9% 250 ML IV SCH (16:30)
[2019-11-25] MEDS ORDERED: GLYCOPYRROLATE 1 MG/5 ML SYRINGE ONE (16:33)
[2019-11-25] MEDS ORDERED: Q-PUMP 1 EACH IRRIG SCH (17:00)
[2019-11-25 17:03] LABS: ABG BASE EXCESS -7.9 mmol/L (-2.0-3.0); ABG HCO3 17.7 mmol/L (21.0-28.0); ABG OXYGEN SATURATION 98.1 % (95.0-99.0); ABG PCO2 36 mmHg (32-45)
--- NOTE | 2019-11-25 17:33 | NUR ---
PT ARRIVES FROM O.R....ET TUBE EXCHANGED IN O.R TO A 7.0 FR ET... NAVARRETE CATH EXCHANGED IN O.R ... RT SUBCLAVIAN CENTRAL LINE EXCHANGED IN O.R. TO A 9FR CORDIS CENTRAL CATHETER...OGT EXCHANGED TO A 18FR IN O.R...LT RADIAL A-LINE...ADALBERTO TUBES X2 TO RT UPPER CHEST ..EPINEPHRINE DRIP AT 6.8ML/HR...LEVOPHED AT 7.5ML/HR...AMIKAR AT 50ML/HR..COARSE BREATH SOUNDS BILATERALLY.. 1 SET OF EPICARDIAL PACEMAKER WIRES TAPED TO RT CHEST...Q-PUMP CATHETER IN PLACE.
[2019-11-25 18:20] LABS: ABG BASE EXCESS -0.9 mmol/L (-2.0-3.0); ABG HCO3 24.5 mmol/L (21.0-28.0); ABG OXYGEN SATURATION 93.4 % (95.0-99.0); ABG PCO2 44 mmHg (32-45)
[2019-11-25 18:26] LABS: HEMATOCRIT 33.5 % (36-48); MEAN CORPUSCULAR HEMOGLOBIN 27.7 pg (27.0-33.0); MEAN CORPUSCULAR HGB CONC 32.5 g/dL (32.0-36.0); NUCLEATED RED BLOOD CELLS 0.1 % (0.0-0.19); PLATELET COUNT (AUTO) 258 K/uL (130-400); RED BLOOD CELL COUNT(AUTO) 3.94 MIL/uL (4.00-5.50); RED CELL DISTRIBUTION WIDTH 15.9 % (11.0-15.5); WHITE BLOOD COUNT (AUTO) 22.8 K/uL (4.8-10.8)
[2019-11-25 18:39] LABS: INR 1.2 (0.85-1.15); PARTIAL THROMBOPLASTIN TIME 25.5 SEC (26.3-35.5); PROTHROMBIN TIME 12.9 SEC (9.6-11.6)
[2019-11-25 18:54] LABS: CREATININE 1.2 mg/dL (0.5-1.5); MAGNESIUM 2.5 mg/dL (1.80-2.40); PHOSPHORUS 8.2 mg/dL (2.5-4.9); POTASSIUM 3.9 mmol/L (3.5-5.1)
[2019-11-25] MEDS ORDERED: SODIUM CHLORIDE 0.9% IV PRN (19:00)
[2019-11-25] MEDS ORDERED: NOREPINEPHRINE BITARTRATE IV PRN (19:00)
--- NOTE | 2019-11-25 19:20 | NUR ---
HAND OFF REPORT GIVEN TO JOAO CASTANO
[2019-11-25] MEDS: FAMOTIDINE/PF 20 MG/2 ML VIAL IV SCH (19:39)
[2019-11-25] MEDS: ATORVASTATIN CALCIUM 20 MG TABLET PO SCH (19:39)
--- NOTE | 2019-11-25 19:56 | NUR ---
I CALLED PTS AND SPOKE TO HIM ON THE PHONE-GAVE HIM AN UPDATE ON PT AND PLAN OF CARE
[2019-11-25] MEDS: PROPOFOL 1000 MG/100 ML 100 ML IV PRN (20:57)
--- NOTE | 2019-11-25 21:00 | NUR ---
TAYLER PT STARTED ON SEDATION DUE TO TACHYPNEA AND ASYNCHRONY WITH VENTILATOR. PT MOVES HEAD DOES NOT TRACK OR FOLLOW COMMANDS THIS IS THE SAME PRIOR TO SURGERY.
[2019-11-25 21:06] LABS: ABG BASE EXCESS 1.8 mmol/L (-2.0-3.0); ABG HCO3 25.3 mmol/L (21.0-28.0); ABG OXYGEN SATURATION 97.9 % (95.0-99.0); ABG PCO2 36 mmHg (32-45)
[2019-11-25] MEDS: CEFAZOLIN SODIUM 1 GM VIAL IV SCH (21:20)
[2019-11-25] MEDS: CALCIUM GLUCONATE 1 GM in SODIUM CHLORIDE 0.9% 50 ML IV PRN (21:59)
[2019-11-25 23:14] LABS: ABG BASE EXCESS 4.3 mmol/L (-2.0-3.0); ABG HCO3 27.4 mmol/L (21.0-28.0); ABG OXYGEN SATURATION 95.5 % (95.0-99.0); ABG PCO2 35 mmHg (32-45)
[2019-11-26] VITALS (25 sets, daily range): BP systolic 100–158; BP diastolic 50–91
[2019-11-26] MEDS: POTASSIUM CHLORIDE 20MEQ/100ML 100 ML IV PRN ×5 (00:18→16:22)
[2019-11-26] MEDS: ARTIFICIAL TEARS 3.5 GM OINTMENT OU SCH ×4 (00:49→18:21)
[2019-11-26] MEDS: FUROSEMIDE 10 MG/ML 4ML VIAL IV SCH (00:49)
[2019-11-26 03:47] LABS: HEMATOCRIT 30.3 % (36-48); MEAN CORPUSCULAR HEMOGLOBIN 27.4 pg (27.0-33.0); MEAN CORPUSCULAR HGB CONC 32.7 g/dL (32.0-36.0); MEAN CORPUSCULAR VOLUME 83.9 fL (79-99); NUCLEATED RED BLOOD CELLS 0.2 % (0.0-0.19); PLATELET COUNT (AUTO) 267 K/uL (130-400); RED BLOOD CELL COUNT(AUTO) 3.61 MIL/uL (4.00-5.50); RED CELL DISTRIBUTION WIDTH 16.2 % (11.0-15.5); WHITE BLOOD COUNT (AUTO) 11.8 K/uL (4.8-10.8)
[2019-11-26 04:05] LABS: INR 1.15 (0.85-1.15); PROTHROMBIN TIME 12.4 SEC (9.6-11.6)
[2019-11-26] MEDS: CALCIUM GLUCONATE 1 GM in SODIUM CHLORIDE 0.9% 50 ML IV PRN ×3 (04:07→13:23)
[2019-11-26] MEDS ORDERED: CALCIUM GLUCONATE 1 GM/10 ML VIAL IV ONE (04:07)
[2019-11-26 04:10] LABS: ABG BASE EXCESS 7.6 mmol/L (-2.0-3.0); ABG HCO3 30.5 mmol/L (21.0-28.0); ABG OXYGEN SATURATION 97.2 % (95.0-99.0); ABG PCO2 37 mmHg (32-45)
[2019-11-26 04:18] LABS: CREATININE 1.3 mg/dL (0.5-1.5); MAGNESIUM 2.2 mg/dL (1.80-2.40); PHOSPHORUS 4.7 mg/dL (2.5-4.9); POTASSIUM 3.4 mmol/L (3.5-5.1)
[2019-11-26] MEDS: PROPOFOL 1000 MG/100 ML 100 ML IV PRN (04:37)
[2019-11-26] MEDS: CEFAZOLIN SODIUM 1 GM VIAL IV SCH ×2 (05:08→13:32)
[2019-11-26] MEDS: METOCLOPRAMIDE 10 MG/2 ML VIAL IVP SCH ×3 (06:08→23:18)
[2019-11-26] MEDS ORDERED: PHARMACY COMMUNICATION MISC SCH (06:15)
[2019-11-26] MEDS: ASPIRIN 81MG TAB.CHEW PO SCH ×2 (08:07→13:15)
[2019-11-26] MEDS: COLCHICINE 0.6 MG TABLET PO SCH ×2 (08:07→21:08)
[2019-11-26] MEDS: POLYETHYLENE GLYCOL 3350 17 GM POWD.PACK PO SCH ×2 (08:07→21:08)
[2019-11-26] MEDS: FAMOTIDINE/PF 20 MG/2 ML VIAL IV SCH ×2 (08:07→21:07)
[2019-11-26] MEDS: AMIODARONE HCL 200 MG TABLET PO SCH (08:07)
[2019-11-26] MEDS: CHLORHEXIDINE GLUCONATE 473 ML MOUTHWASH MM SCH ×2 (08:08→21:31)
--- NOTE | 2019-11-26 11:10 | NUR ---
PATIENT IS STILL INTUBATED. PER EYAD WHITAKER TO HOLD PT EVALUATION UNTIL FURTHER NOTICE. Addendum: 11/26/19 at 1325 by ROSE MARIE CHAIREZ, PT PT Amended: Links added.
[2019-11-26 11:46] LABS: ABG BASE EXCESS 4.9 mmol/L (-2.0-3.0); ABG HCO3 27.6 mmol/L (21.0-28.0); ABG OXYGEN SATURATION 97.6 % (95.0-99.0); ABG PCO2 35 mmHg (32-45)
[2019-11-26 11:55] LABS: CREATININE 1.1 mg/dL (0.5-1.5); POTASSIUM 3.3 mmol/L (3.5-5.1)
--- NOTE | 2019-11-26 12:57 | NUR ---
Patient with NIP -28. Able to nod yes and no. Unable to lift head. Able to move head side to side. Dr. Raymond made aware. Patient extubated to BIPAP 10/5 rate of 14 and FIO2 40%.
--- NOTE | 2019-11-26 13:05 | NUR ---
DCP: PENDING RECOMMENDATIONS GLADIS spoke to pt's Brock Horvath [phone]. Per , prior to admission, pt was independent of ADLs, and he assisted with home management as much as he could. 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 Pt used husvand cane and rollator walker as needed, but pt has no DME in home. No in home care services or outpt treatments. PCP is Misael Henning. states he is open to recommendation made by MD for dc because he wants best for his . DCP pending recommendations. CM to recontact when MD recommendations known Addendum: 11/26/19 at 1310 by HOOD VALENZUELA Amended: Links added.
[2019-11-26] MEDS ORDERED: RACEPINEPHRINE HCL 2.25% 0.5 ML NEB SOLN NEB PRN (15:45)
[2019-11-26] MEDS: DEXAMETHASONE SOD PHOSPHATE 4 MG/ML 1ML VIAL IVP SCH ×2 (15:58→21:36)
--- NOTE | 2019-11-26 16:11 | NUR ---
[facility] CONSULT PATIENT ASSESSED REQUESTED: PATIENT PRESENTS WITH STAGE II PRESSURE ULCER TO RIGHT BUTTOCK; [facility] RECCOMENDATIONS SUBMITTED Addendum: 11/26/19 at 1613 by GITA BECERRIL LVN LVN W Amended: Links added.
[2019-11-26 16:20] LABS: ABG BASE EXCESS 4.1 mmol/L (-2.0-3.0); ABG HCO3 27.3 mmol/L (21.0-28.0); ABG OXYGEN SATURATION 97.5 % (95.0-99.0); ABG PCO2 36 mmHg (32-45)
[2019-11-26] MEDS: HONEY 1 APPL/ML TUBE TP SCH (19:15)
--- NOTE | 2019-11-26 19:30 | NUR ---
NURSING ROUNDS Pt received awake, resting in the bed with the bipap mask on at 10/5, rate of 14 with fio2 at 40%. Nods head to acknowledge her name. Reoriented to place and time and plan of care, able to follow simple commands. Head of the bed up at 45 degrees, Scattered rhonchi and coarse crackles in the jolie upper lung chaidez, intermittent wheezing more prominent on the rt upper lobe. Diminished breath sounds at the bibasilar areas. Rt chest tube to low int suction, minimal amt of serous drainage. Dressing to the rt chest dry and intact, pacemaker wires taped to the chest with q pump in place at 10 cc/hr. Running normal sinus rhythm in the monitor, no ectopies noted. Manual blood pressure as well as a line bp correlating. Continues on the Epinephrine drip at 0.01 mcg/kg/min and insulin drip as per algorhythm 2. Pt not talking at this time, repositioned in the bed. Made aware that she's going to be repositioned q 2hrs for pressure relief, nodded head. Able to move all extremities weakly. Watson sump tube to the left nare for adm of po meds, checked for placement. FC patent, gunnar yellow urine, draining to adequate amount of urine. Denies any discomfort.
[2019-11-26] MEDS: IPRATROPIUM/ALBUTEROL SULFATE 3 ML SOLUTION IH PRN (19:37)
[2019-11-26] MEDS: ATORVASTATIN CALCIUM 20 MG TABLET PO SCH (21:08)
[2019-11-27] VITALS (31 sets, daily range): BP systolic 124–190; BP diastolic 61–104
--- NOTE | 2019-11-27 00:30 | NUR ---
PATIENT UPDATE Sleeping comfortably, vital signs stable, Not in any form of discomfort. No bleeding noted from the rt chest tube, urine output adequate.
[2019-11-27] MEDS: ARTIFICIAL TEARS 3.5 GM OINTMENT OU SCH ×4 (01:55→18:26)
[2019-11-27] MEDS: DEXAMETHASONE SOD PHOSPHATE 4 MG/ML 1ML VIAL IVP SCH (03:12)
[2019-11-27 05:07] LABS: ABG BASE EXCESS 3.6 mmol/L (-2.0-3.0); ABG HCO3 25.1 mmol/L (21.0-28.0); ABG OXYGEN SATURATION 98.8 % (95.0-99.0); ABG PCO2 30 mmHg (32-45)
[2019-11-27 05:10] LABS: HEMATOCRIT 30.6 % (36-48); MEAN CORPUSCULAR HEMOGLOBIN 27.4 pg (27.0-33.0); MEAN CORPUSCULAR HGB CONC 31.4 g/dL (32.0-36.0); MEAN CORPUSCULAR VOLUME 87.4 fL (79-99); PLATELET COUNT (AUTO) 188 K/uL (130-400); RED CELL DISTRIBUTION WIDTH 16.6 % (11.0-15.5); WHITE BLOOD COUNT (AUTO) 12.8 K/uL (4.8-10.8)
[2019-11-27 05:21] LABS: CREATININE 0.9 mg/dL (0.5-1.5); POTASSIUM 3.8 mmol/L (3.5-5.1)
[2019-11-27] MEDS: METOCLOPRAMIDE 10 MG/2 ML VIAL IVP SCH ×3 (06:30→22:44)
[2019-11-27] MEDS: IPRATROPIUM/ALBUTEROL SULFATE 3 ML SOLUTION IH PRN (06:36)
--- NOTE | 2019-11-27 06:36 | NUR ---
COMFORT Pt slept well overnight, tolerated the bipap well. Not in any form of discomfort. Complete bedbath given with chg, tolerated well. Blood pressure in the 150's mmhg systolic, cvp bet 7-9, insulin drip at 0.05 units per hour.
[2019-11-27] MEDS: FUROSEMIDE 10 MG/ML 4ML VIAL IV SCH (09:17)
[2019-11-27] MEDS: POLYETHYLENE GLYCOL 3350 17 GM POWD.PACK PO SCH ×3 (09:18→22:44)
[2019-11-27] MEDS: COLCHICINE 0.6 MG TABLET PO SCH ×2 (09:18→22:44)
[2019-11-27] MEDS: ASPIRIN 81MG TAB.CHEW PO SCH (09:18)
[2019-11-27] MEDS: AMIODARONE HCL 200 MG TABLET PO SCH (09:18)
[2019-11-27] MEDS: ENOXAPARIN SODIUM 30 MG/0.3 ML SQ SCH (09:19)
[2019-11-27] MEDS: CHLORHEXIDINE GLUCONATE 473 ML MOUTHWASH MM SCH ×2 (09:19→22:46)
[2019-11-27] MEDS: HONEY 1 APPL/ML TUBE TP SCH (09:19)
[2019-11-27] MEDS: FAMOTIDINE/PF 20 MG/2 ML VIAL IV SCH ×2 (09:35→22:44)
[2019-11-27 09:44] LABS: ABG BASE EXCESS 4.1 mmol/L (-2.0-3.0); ABG HCO3 26.6 mmol/L (21.0-28.0); ABG OXYGEN SATURATION 97.1 % (95.0-99.0); ABG PCO2 34 mmHg (32-45)
[2019-11-27] MEDS: INSULIN HUMULIN R 100 UNIT/ML 3ML SQ SCH ×3 (11:30→23:59)
[2019-11-27 15:49] LABS: ABG BASE EXCESS 5.6 mmol/L (-2.0-3.0); ABG HCO3 27.7 mmol/L (21.0-28.0); ABG OXYGEN SATURATION 96.8 % (95.0-99.0); ABG PCO2 33 mmHg (32-45)
--- NOTE | 2019-11-27 17:56 | NUR ---
DR. CHATTERJEE IN ROOM SPEAKING WITH PT.
--- NOTE | 2019-11-27 22:15 | NUR ---
PT UNABLE TO SWALLOW MEDICATION AND A SIP OF WATER. PT BEGAN TO COUGH AND HAD DIFFICULTY SWALLOWING.
[2019-11-27] MEDS: METOPROLOL TARTRATE 25 MG TAB PO SCH (22:44)
[2019-11-27] MEDS: ATORVASTATIN CALCIUM 20 MG TABLET PO SCH (22:44)
[2019-11-28] VITALS (17 sets, daily range): BP systolic 115–161; BP diastolic 62–98
[2019-11-28] MEDS: ARTIFICIAL TEARS 3.5 GM OINTMENT OU SCH ×4 (01:15→21:00)
[2019-11-28 03:54] LABS: HEMATOCRIT 32.9 % (36-48); MEAN CORPUSCULAR HEMOGLOBIN 27.2 pg (27.0-33.0); MEAN CORPUSCULAR HGB CONC 31.3 g/dL (32.0-36.0); PLATELET COUNT (AUTO) 253 K/uL (130-400); RED BLOOD CELL COUNT(AUTO) 3.78 MIL/uL (4.00-5.50); RED CELL DISTRIBUTION WIDTH 16.2 % (11.0-15.5); WHITE BLOOD COUNT (AUTO) 11.9 K/uL (4.8-10.8)
--- NOTE | 2019-11-28 04:05 | NUR ---
potassium 2.8 will start patient on IV potassium protocol
[2019-11-28 04:07] LABS: ABG BASE EXCESS 5.2 mmol/L (-2.0-3.0); ABG HCO3 27.6 mmol/L (21.0-28.0); ABG PCO2 34 mmHg (32-45)
[2019-11-28 04:08] LABS: POTASSIUM 2.8 mmol/L (3.5-5.1)
[2019-11-28 04:11] LABS: BAND NEUTROPHILS % (MANUAL) 4 % (0-2); LYMPHOCYTES % (MANUAL) 5 % (22-44); MAN.DIFF COMMENT-IMPRESSION MANUAL DIFFERENTIAL; MONOCYTES % (MANUAL) 6 % (2-9); PLATELET MORPHOLOGY COMMENT ADEQUATE; SEGMENTED NEUTROPHILS % 85 % (40-70)
[2019-11-28 04:32] LABS: B-TYPE NATRIURETIC PEPTIDE 672 pg/mL (0-100)
[2019-11-28] MEDS: INSULIN HUMULIN R 100 UNIT/ML 3ML SQ SCH ×4 (05:59→23:59)
[2019-11-28] MEDS: POTASSIUM CHLORIDE 20MEQ/100ML 100 ML IV PRN ×4 (06:12→21:44)
[2019-11-28] MEDS: LIDOCAINE HCL-MPF 1% 2ML VIAL IV PRN ×4 (06:12→21:44)
[2019-11-28] MEDS: ASPIRIN 81MG TAB.CHEW PO SCH (08:28)
[2019-11-28] MEDS: COLCHICINE 0.6 MG TABLET PO SCH ×2 (08:28→21:59)
[2019-11-28] MEDS: METOPROLOL TARTRATE 25 MG TAB PO SCH ×2 (08:28→21:59)
[2019-11-28] MEDS: POLYETHYLENE GLYCOL 3350 17 GM POWD.PACK PO SCH ×2 (08:29→21:59)
[2019-11-28] MEDS: AMIODARONE HCL 200 MG TABLET PO SCH (08:29)
--- NOTE | 2019-11-28 08:50 | NUR ---
DR. WARD IN ROOM ASSESSING/SPEAKING WITH PT. DR. WARD MADE AWARE BY THIS NURSE RE:PT.'S LEFT SIDED HEMIPARESIS AND LEFT FOOT DROP; VERBALIZED UNDERSTANDING AND ORDERS RECEIVED.
[2019-11-28] MEDS: ENOXAPARIN SODIUM 30 MG/0.3 ML SQ SCH ×2 (09:00→09:59)
--- NOTE | 2019-11-28 09:19 | NUR ---
RECEIVED CALL FROM PT.'S SPOUSE UPDATED ON STATUS AND QUESTIONS ANSWERED.
[2019-11-28] MEDS: METOCLOPRAMIDE 10 MG/2 ML VIAL IVP SCH ×2 (09:52→15:00)
[2019-11-28] MEDS: FUROSEMIDE 10 MG/ML 4ML VIAL IV SCH (09:52)
[2019-11-28] MEDS: FAMOTIDINE/PF 20 MG/2 ML VIAL IV SCH ×2 (09:52→22:00)
[2019-11-28] MEDS: HONEY 1 APPL/ML TUBE TP SCH (09:58)
[2019-11-28] MEDS: CHLORHEXIDINE GLUCONATE 473 ML MOUTHWASH MM SCH ×2 (09:59→22:05)
--- NOTE | 2019-11-28 11:05 | NUR ---
PAGED DR. WARD TO INFORM RE:CT HEAD RESULTS. AWAITING RESPONSE.
--- NOTE | 2019-11-28 11:14 | NUR ---
DR. Duke MAYORGA IN ROOM SPEAKING WITH/ASSESSING PT. DR. MAYORGA MADE AWARE RE:CT HEAD RESULTS.
[2019-11-28] MEDS ORDERED: GADODIAMIDE 10 MMOL/20 ML VIAL IV ONE (11:51)
--- NOTE | 2019-11-28 12:38 | NUR ---
Min COTTON NP IN ROOM ASSESSING/SPEAKING WITH PT.
--- NOTE | 2019-11-28 12:56 | NUR ---
TO MRI VIA BED WITH O2 AT 3L/NC.
--- NOTE | 2019-11-28 14:41 | NUR ---
MRI RESULTS TO DR. WARD GIVEN VIA TELEPHONE. ORDERS RECEIVED.
--- NOTE | 2019-11-28 15:06 | NUR ---
DR. Tra MINOR IN ROOM ASSESSING AND SPEAKING WITH PT.
--- NOTE | 2019-11-28 15:30 | NUR ---
DR. Tra MINOR SPEAKING WITH DR. WARD VIA TELEPHONE RE:PT.'S CURRENT STATUS AND CT/MRI HEAD RESULTS.
--- NOTE | 2019-11-28 16:35 | NUR ---
[facility] SENT REFERRAL TO [facility] - PT WILL NEED RESP CATARINA DIXON, PT/OT TELEL MONITORING. - WENT OVER CHART WITH GRISELDA ELMORE HAVE BEEN DCD, NEW DX OF CVA- HEMATOMA THIS AFTERNOON. CONTACTED DR. MAYORGA FOR CLARIFICATION Addendum: 11/28/19 at 1638 by SAGE CR RN CM Amended: Links added.
--- NOTE | 2019-11-28 18:15 | NUR ---
TRANSFERRED TO ROOM 206 VIA BED WITH BELONGINGS ACCOMPANIED BY AIDA PRESCOTT. REPORT GIVEN TO Luisa PALOMARES RN.
--- NOTE | 2019-11-28 19:07 | NUR ---
NOTIFIED PT.'S SPOUSE, SYDNEE JOSEPH, RE:PT.'S TRANSFER TO ROOM 206; VERBALIZED UNDERSTANDING AND QUESTIONS ANSWERED.
[2019-11-28] MEDS: ATORVASTATIN CALCIUM 20 MG TABLET PO SCH (21:59)
[2019-11-29] VITALS (24 sets, daily range): BP systolic 107–136; BP diastolic 42–95
[2019-11-29] MEDS: ARTIFICIAL TEARS 3.5 GM OINTMENT OU SCH ×2 (01:15→07:15)
[2019-11-29 04:10] LABS: HEMATOCRIT 35.9 % (36-48); MEAN CORPUSCULAR HEMOGLOBIN 27.5 pg (27.0-33.0); MEAN CORPUSCULAR HGB CONC 31.2 g/dL (32.0-36.0); PLATELET COUNT (AUTO) 291 K/uL (130-400); RED BLOOD CELL COUNT(AUTO) 4.08 MIL/uL (4.00-5.50); RED CELL DISTRIBUTION WIDTH 16.5 % (11.0-15.5); WHITE BLOOD COUNT (AUTO) 10.8 K/uL (4.8-10.8)
[2019-11-29 04:21] LABS: POTASSIUM 3.5 mmol/L (3.5-5.1)
[2019-11-29 04:26] LABS: INR 1.31 (0.85-1.15); PARTIAL THROMBOPLASTIN TIME 26.4 SEC (26.3-35.5)
[2019-11-29] MEDS: INSULIN HUMULIN R 100 UNIT/ML 3ML SQ SCH ×4 (05:59→23:59)
--- NOTE | 2019-11-29 08:03 | NUR ---
PT IS AWAKE AND ALERT. SHE IS ABLE TO CONVERSE APPROPRIATELY. ONLY DEFICIT NOTED IS THAT SHE HAS A LEFT FOOT DROP AND CANNOT MOVE LOWER LEFT EXTREMITY. SHE DENIES PAIN. PENDING NEUROLOGY/NEUROSURGERY CONSULTS. OTHERWISE STABLE
[2019-11-29] MEDS: AMIODARONE HCL 200 MG TABLET PO SCH (08:49)
[2019-11-29] MEDS: CHLORHEXIDINE GLUCONATE 473 ML MOUTHWASH MM SCH ×2 (08:49→20:51)
[2019-11-29] MEDS: FUROSEMIDE 10 MG/ML 4ML VIAL IV SCH (08:49)
[2019-11-29] MEDS: FAMOTIDINE/PF 20 MG/2 ML VIAL IV SCH ×2 (08:49→20:50)
[2019-11-29] MEDS: HONEY 1 APPL/ML TUBE TP SCH (08:49)
[2019-11-29] MEDS: METOPROLOL TARTRATE 25 MG TAB PO SCH (08:50)
[2019-11-29] MEDS: ASPIRIN 81MG TAB.CHEW PO SCH ×2 (08:50→09:00)
[2019-11-29] MEDS: COLCHICINE 0.6 MG TABLET PO SCH ×2 (08:50→20:48)
[2019-11-29] MEDS: POLYETHYLENE GLYCOL 3350 17 GM POWD.PACK PO SCH ×2 (08:51→20:50)
[2019-11-29] MEDS: POTASSIUM CHLORIDE 20MEQ/100ML 100 ML IV PRN (08:53)
[2019-11-29] MEDS: LIDOCAINE HCL-MPF 1% 2ML VIAL IV PRN (08:54)
[2019-11-29] MEDS ORDERED: POTASSIUM CHLORIDE 20 MEQ ERTAB PO PRN (09:15)
--- NOTE | 2019-11-29 09:50 | NUR ---
I CALLED AND CONFIRMED CONSULT WITH DR LINDER. HE WILL SEE PT THIS AFTERNOON. THANK YOU
--- NOTE | 2019-11-29 13:51 | NUR ---
RD FOLLOW UP NOTE PT S/P ATRIAL MASS REMOVAL. NOTIFICATION FOR TUBE FEEDINGS RECEIVED. RECOMMEND JEVITY 1.5, CONTINUOUS TUBE FEEDING, INITIATED AT 20MLS/HR FOR 5 HOURS. ADVANCE 5MLS EVERY 5 HOURS TO GOAL OF 45MLS/HR TOLERATED. GOAL PROVIDES 1620KCALS/69GM PROTEIN, 821ML FREE H2O. RECOMMENDED FLUSHES: 150MLS Q6HRS. NOTED HYPOACTIVE BOWEL SOUNDS. RECOMMEND GUT HEALTH PROMOTING, HIGH FIBER FORMULA AND PROKINETIC AGENTS MEDICALLY FEASIBLE. RD TO MONITOR HYDRATION STATUS AND TUBE FEEDING TOLERANCE. PLEASE NOTIFY ADDITIONAL NUTRITION CONCERNS ARISE. THANK YOU. Addendum: 11/29/19 at [address] Amended: Links added.
--- NOTE | 2019-11-29 14:03 | NUR ---
DELORES VILLALOBOS CALLED SAID THAT [facility] SPOKE TO DR. LYNN AND WAS TOLD TO HOLD REFERRAL. SPOKE TO DR. MAYORGA REGARDING ANCEF DROPPING OFF. SAID OKAY PATIENT PROBABLY NEEDS TO GO TO IRU NOT [facility]. NO NEW ABX ORDERED. Addendum: 11/29/19 at 1405 by BERTRAND BETANCUR RN CM Amended: Links added.
[2019-11-29] MEDS: ATORVASTATIN CALCIUM 20 MG TABLET PO SCH (20:48)
[2019-11-29] MEDS: METOPROLOL TARTRATE 50 MG TAB PO SCH (20:50)
[2019-11-29] MEDS ORDERED: POTASSIUM CHLORIDE 20 MEQ ERTAB PO SCH (21:00)
[2019-11-30] VITALS (16 sets, daily range): BP systolic 89–139; BP diastolic 48–86
[2019-11-30 04:26] LABS: BASOPHILS % (AUTO) 0.4 % (0.0-5.0); EOSINOPHILS % (AUTO) 0.2 % (0.0-8.0); HEMATOCRIT 38.9 % (36-48); LYMPHOCYTES % (AUTO) 15.9 % (21.0-51.0); MEAN CORPUSCULAR HEMOGLOBIN 27.3 pg (27.0-33.0); MEAN CORPUSCULAR HGB CONC 30.1 g/dL (32.0-36.0); MEAN CORPUSCULAR VOLUME 90.7 fL (79-99); MONOCYTES % (AUTO) 8.1 % (3.0-13.0); NEUTROPHILS % (AUTO) 74.9 % (40.0-77.0); NUCLEATED RED BLOOD CELLS 0.2 % (0.0-0.19); PLATELET COUNT (AUTO) 346 K/uL (130-400); RED BLOOD CELL COUNT(AUTO) 4.29 MIL/uL (4.00-5.50); RED CELL DISTRIBUTION WIDTH 16.5 % (11.0-15.5); WHITE BLOOD COUNT (AUTO) 13.2 K/uL (4.8-10.8)
[2019-11-30 04:35] LABS: ALBUMIN 2.6 g/dL (3.5-5.0); CREATININE 1.3 mg/dL (0.5-1.5); MAGNESIUM 2.3 mg/dL (1.80-2.40); PHOSPHORUS 3.6 mg/dL (2.5-4.9)
[2019-11-30] MEDS: POTASSIUM CHLORIDE 10% ELIXIR 20 MEQ/15 ML UDCUP PO PRN ×2 (05:01→06:25)
[2019-11-30] MEDS: INSULIN HUMULIN R 100 UNIT/ML 3ML SQ SCH ×4 (05:59→23:59)
[2019-11-30] MEDS: POLYETHYLENE GLYCOL 3350 17 GM POWD.PACK PO SCH ×2 (08:45→20:15)
[2019-11-30] MEDS: FAMOTIDINE/PF 20 MG/2 ML VIAL IV SCH ×2 (09:21→20:15)
[2019-11-30] MEDS: METOPROLOL TARTRATE 50 MG TAB PO SCH ×2 (09:21→20:26)
[2019-11-30] MEDS: AMIODARONE HCL 200 MG TABLET PO SCH (09:21)
[2019-11-30] MEDS: POTASSIUM CHLORIDE 20 MEQ ERTAB PO SCH (09:21)
[2019-11-30] MEDS: HONEY 1 APPL/ML TUBE TP SCH (09:22)
[2019-11-30] MEDS: CHLORHEXIDINE GLUCONATE 473 ML MOUTHWASH MM SCH ×2 (09:22→20:15)
[2019-11-30] MEDS: COLCHICINE 0.6 MG TABLET PO SCH ×2 (09:22→20:15)
--- NOTE | 2019-11-30 09:40 | NUR ---
DYSPHAGIA EVAL COMPLETED. SEVERE ORAL DYSPHAGIA. Pt UNABLE TO FOLLOW BASIC/SIMPLE COMMANDS, NONVERBAL-ONLY VERBALIZED HER NAME WITH LOW BREATHY VOICE. RECOMMEND THE CONTINUATION OF SHORT TERM MEANS OF NUTRITION/HYDRATION AT THIS TIME. RECOMMENDATIONS: DYSPHAGIA THERAPY 3-5X WEEK TO INCREASE ORAL MOTOR STRENGTH AND PHARYNGEAL SWALLOW: LTG#1: Pt WILL TOLERATE LEAST RESTRICTIVE DIET TO MEET NUTRITION/HYDRATION WITH NO S/S OF ASPIRATION. LTG#2: SKILLED EDUCATION Pt/FAMILY/STAFF. STG#1: Pt WILL PARTICIPATE IN LARYNGEAL ELEVATION/EXCURSION EXERCISES WITH 80% ACCURACY. STG#2: Pt WILL PARTICIPATE IN TONGUE BASE RETRACTION EXERCISES WITH 80% ACCURACY. STG#3: Pt WILL PARTICIPATE IN ORAL MOTOR EXERCISES WITH 80% ACCURACY. STG#4: Pt WILL TOLERATE THERAPEUTIC TRIALS OF ADVANCED TEXTURES OF PUREED WITH NO OVERT S/S OF ASPIRATION. STG#5: Pt WILL BE ABLE TO PARTICIPATE IN MBSS AFTER 2-4 WEEKS OF THERAPEUTIC INTERVENTION. STG#6: SKILLED EDUCATION Pt/FAMILY/STAFF. STUDENT DEVELOPMENT SPECIALIST COORDINATED CARE WITH NURSE KARINA. Addendum: 11/30/[address] UVALDO MADRIGAL Amended: Links added.
[2019-11-30] MEDS: POTASSIUM CHLORIDE 20 MEQ in DEXTROSE 5%-WATER 1,000 ML IV SCH (10:13)
--- NOTE | 2019-11-30 11:14 | NUR ---
DELORES PLAN GOT ORDER TO SUBMIT TO [facility]. SENT ORDER TO [facility]. SHE ALREADY HAD PACKET JUST ON HOLD. Addendum: 11/30/19 at 1115 by BERTRAND BETANCUR RN CM Amended: Links added.
[2019-11-30] MEDS: ZOSYN 3.375GM+NS 50ML 50 ML IV SCH (12:27)
[2019-11-30] MEDS: ATORVASTATIN CALCIUM 20 MG TABLET PO SCH (20:15)
[2019-12-01] MEDS: ZOSYN 3.375GM+NS 50ML 50 ML IV SCH ×3 (00:33→22:44)
[2019-12-01] MEDS: POTASSIUM CHLORIDE 20 MEQ in DEXTROSE 5%-WATER 1,000 ML IV SCH (00:35)
[2019-12-01 03:45] VITALS: BP 104/62
[2019-12-01 04:43] LABS: BASOPHILS % (AUTO) 0.3 % (0.0-5.0); EOSINOPHILS % (AUTO) 2.1 % (0.0-8.0); LYMPHOCYTES % (AUTO) 16.6 % (21.0-51.0); MEAN CORPUSCULAR HEMOGLOBIN 26.8 pg (27.0-33.0); MEAN CORPUSCULAR HGB CONC 29.2 g/dL (32.0-36.0); MEAN CORPUSCULAR VOLUME 91.8 fL (79-99); NEUTROPHILS % (AUTO) 73.5 % (40.0-77.0); PLATELET COUNT (AUTO) 283 K/uL (130-400); RED BLOOD CELL COUNT(AUTO) 3.92 MIL/uL (4.00-5.50); RED CELL DISTRIBUTION WIDTH 16.5 % (11.0-15.5); WHITE BLOOD COUNT (AUTO) 14.2 K/uL (4.8-10.8)
[2019-12-01 04:59] LABS: CREATININE 1.3 mg/dL (0.5-1.5); MAGNESIUM 2.5 mg/dL (1.80-2.40); PHOSPHORUS 4.3 mg/dL (2.5-4.9); POTASSIUM 3.3 mmol/L (3.5-5.1)
[2019-12-01 05:08] LABS: B-TYPE NATRIURETIC PEPTIDE 252 pg/mL (0-100)
[2019-12-01] MEDS: INSULIN HUMULIN R 100 UNIT/ML 3ML SQ SCH ×4 (05:44→23:59)
[2019-12-01] MEDS: HONEY 1 APPL/ML TUBE TP SCH ×2 (07:48→09:45)
[2019-12-01] MEDS: POLYETHYLENE GLYCOL 3350 17 GM POWD.PACK PO SCH (07:49)
[2019-12-01 08:20] VITALS: BP 99/69
--- NOTE | 2019-12-01 09:25 | NUR ---
DR. HARTMANN IN ROOM ASSESSING/SPEAKING WITH PT.
--- NOTE | 2019-12-01 09:39 | NUR ---
HEATHER ESCOBEDO, IN ROOM ASSESSING/SPEAKING WITH PT.
[2019-12-01] MEDS: COLCHICINE 0.6 MG TABLET PO SCH ×2 (09:43→22:44)
[2019-12-01] MEDS: AMIODARONE HCL 200 MG TABLET PO SCH (09:43)
[2019-12-01] MEDS: CHLORHEXIDINE GLUCONATE 473 ML MOUTHWASH MM SCH ×2 (09:43→22:45)
[2019-12-01] MEDS: METOPROLOL TARTRATE 50 MG TAB PO SCH ×2 (09:43→21:00)
[2019-12-01] MEDS: POTASSIUM CHLORIDE 20 MEQ ERTAB PO SCH (09:43)
[2019-12-01] MEDS: FAMOTIDINE/PF 20 MG/2 ML VIAL IV SCH ×2 (09:44→22:44)
[2019-12-01 11:08] VITALS: BP 111/70
--- NOTE | 2019-12-01 13:00 | NUR ---
REPEAT CT SCAN OF HEAD RESULTS TO DR. HARTMANN. NO NEW ORDERS RECEIVED AT THIS TIME.
[2019-12-01 16:49] VITALS: BP 94/62
--- NOTE | 2019-12-01 18:25 | NUR ---
DR. CHATTERJEE IN ROOM ASSESSING/SPEAKING WITH PT.
[2019-12-01 19:00] VITALS: BP 93/64
[2019-12-01] MEDS: ATORVASTATIN CALCIUM 20 MG TABLET PO SCH (22:44)
[2019-12-01 23:56] VITALS: BP 99/64
[2019-12-02 04:00] VITALS: BP 94/65
[2019-12-02 05:17] LABS: CREATININE 1.1 mg/dL (0.5-1.5); POTASSIUM 3.3 mmol/L (3.5-5.1)
[2019-12-02] MEDS: INSULIN HUMULIN R 100 UNIT/ML 3ML SQ SCH ×4 (05:59→23:59)
[2019-12-02 08:21] VITALS: BP 99/68
[2019-12-02] MEDS: AMIODARONE HCL 200 MG TABLET PO SCH (09:09)
[2019-12-02] MEDS: COLCHICINE 0.6 MG TABLET PO SCH ×2 (09:09→21:41)
[2019-12-02] MEDS: METOPROLOL TARTRATE 50 MG TAB PO SCH ×2 (09:09→21:00)
[2019-12-02] MEDS: POTASSIUM CHLORIDE 20 MEQ ERTAB PO SCH (09:10)
[2019-12-02] MEDS: LIDOCAINE HCL-MPF 1% 2ML VIAL IV PRN (09:10)
[2019-12-02] MEDS: POTASSIUM CHLORIDE 20MEQ/100ML 100 ML IV PRN (09:10)
[2019-12-02] MEDS: CHLORHEXIDINE GLUCONATE 473 ML MOUTHWASH MM SCH ×2 (09:11→21:41)
[2019-12-02] MEDS: FAMOTIDINE/PF 20 MG/2 ML VIAL IV SCH ×2 (09:11→21:41)
[2019-12-02] MEDS: HONEY 1 APPL/ML TUBE TP SCH (09:11)
--- NOTE | 2019-12-02 09:30 | NUR ---
DR. Alaina HARTMANN IN ROOM WITH PT. DR. HARTMANN AWARE OF CT HEAD RESULTS. NO NEW ORDERS RECEIVED AT THIS TIME.
--- NOTE | 2019-12-02 09:53 | NUR ---
RECEIVED CALL FROM PT.'S SON, CHRISTIAN JOSEPH, UPDATED ON STATUS AND QUESTIONS ANSWERED; VERBALIZED UNDERSTANDING.
[2019-12-02] MEDS: ZOSYN 3.375GM+NS 50ML 50 ML IV SCH ×2 (12:11→21:41)
--- NOTE | 2019-12-02 12:39 | NUR ---
DELORES VILLALOBOS CALLED SAID PATIENT ACCEPTED AT 930 PENDING BED AVAILABILITY. LET NURSE KNOW. PER NURSE DR. LYNN WANTS TO GET OKAY FROM A [place] SINCE PATIENT DEVELOPED A NEW PNEUMOTHORAX. Addendum: 12/02/19 at 1240 by BERTRAND BETANCUR RN CM Amended: Links added.
[2019-12-02 12:51] VITALS: BP 97/62
--- NOTE | 2019-12-02 15:33 | NUR ---
RD FOLLOW UP PT TOLERATING TUBE FEEDING, JEVITY 1.5 @35MLS/HR AT TIME OF SCREEN. CURRENT FEEDING RATE MEETING 90% OF PT'S NUTRITIONAL NEEDS. WHEN MEDICALLY FEASIBLE, RECOMMEND TO ADVANCE RATE TO GOAL (45,LS/HR), TOLERATED. NOTED, PT WITH IMPROVING OVERALL LAB VALUES. LBM 12/01/19. RD TO CONTINUE TO MONITOR. PLEASE NOTIFY ADDITIONAL NUTRITION CONCERNS ARISE. THANK YOU. Addendum: 12/02/19 at [address] Amended: Links added.
--- NOTE | 2019-12-02 15:44 | NUR ---
DYSPHAGIA RE-EVAL COMPLETED. +S/S OF ASPIRATION. RECOMMEND RESIDENTIAL ALTERNATE MEANS OF NUTRITION/HYDRATION AT THIS TIME. DISTRIBUTION FIELD TECHNICIAN COORDINATED CARE AND RECOMMENDATIONS WITH NURSE REAGAN. Addendum: 12/02/[address]VALDO MADRIGAL Amended: Links added.
[2019-12-02 16:36] VITALS: BP 91/55
--- NOTE | 2019-12-02 18:30 | NUR ---
RESIDUALS CHECKED ON FEEDING TUBE, 180ML NOTED. TUBE FEEDING PLACED ON HOLD AT THIS TIME. Addendum: 12/02/19 at 1938 by MERARY ALONZO RN RN BOWEL MOVEMENT NOTED. CARE RENDERED AND REPOSITIONED.
[2019-12-02 19:08] VITALS: BP 92/54
--- NOTE | 2019-12-02 19:15 | NUR ---
CALLED PT.'S SPOUSE AT TELEPHONE NUMBER ON FACESHEET TO OBTAIN CONSENT FOR EGD W/PEG WITH MAC, NO RESPONSE, VOICEMAIL FOR RETURN CALL PROVIDED WITH TELEPHONE NUMBER.
[2019-12-02] MEDS: ATORVASTATIN CALCIUM 20 MG TABLET PO SCH (21:41)
[2019-12-02 23:11] VITALS: BP 108/66
[2019-12-03 03:29] VITALS: BP 100/57
[2019-12-03 04:08] LABS: BASOPHILS % (AUTO) 0.3 % (0.0-5.0); EOSINOPHILS % (AUTO) 4.4 % (0.0-8.0); HEMATOCRIT 32.8 % (36-48); LYMPHOCYTES % (AUTO) 19.2 % (21.0-51.0); MEAN CORPUSCULAR HEMOGLOBIN 27.2 pg (27.0-33.0); MEAN CORPUSCULAR HGB CONC 29.9 g/dL (32.0-36.0); MEAN CORPUSCULAR VOLUME 91.1 fL (79-99); MONOCYTES % (AUTO) 7.2 % (3.0-13.0); NEUTROPHILS % (AUTO) 68.4 % (40.0-77.0); PLATELET COUNT (AUTO) 241 K/uL (130-400); RED CELL DISTRIBUTION WIDTH 15.6 % (11.0-15.5); WHITE BLOOD COUNT (AUTO) 8.7 K/uL (4.8-10.8)
[2019-12-03 04:25] LABS: MAGNESIUM 2.1 mg/dL (1.80-2.40); PHOSPHORUS 2.4 mg/dL (2.5-4.9); POTASSIUM 3.2 mmol/L (3.5-5.1)
[2019-12-03] MEDS: INSULIN HUMULIN R 100 UNIT/ML 3ML SQ SCH ×3 (05:59→17:32)
--- NOTE | 2019-12-03 08:00 | NUR ---
DR. WARD IS MAKING HIS ROUNDS. PATIENT IS RESPONDING MORE TODAY. SHE IS ALSO PENDING PEG PLACEMENT.
[2019-12-03 08:41] VITALS: BP 116/75
[2019-12-03] MEDS: CHLORHEXIDINE GLUCONATE 473 ML MOUTHWASH MM SCH (09:00)
[2019-12-03] MEDS: POTASSIUM CHLORIDE 20 MEQ ERTAB PO SCH (09:00)
[2019-12-03] MEDS: FAMOTIDINE/PF 20 MG/2 ML VIAL IV SCH (10:51)
[2019-12-03] MEDS: METOPROLOL TARTRATE 50 MG TAB PO SCH (10:52)
[2019-12-03] MEDS: AMIODARONE HCL 200 MG TABLET PO SCH (10:52)
[2019-12-03] MEDS: COLCHICINE 0.6 MG TABLET PO SCH (10:52)
[2019-12-03] MEDS: ZOSYN 3.375GM+NS 50ML 50 ML IV SCH (10:53)
[2019-12-03] MEDS: HONEY 1 APPL/ML TUBE TP SCH (10:53)
[2019-12-03] MEDS: POTASSIUM CHLORIDE 10% ELIXIR 20 MEQ/15 ML UDCUP PO PRN ×2 (11:08→14:10)
--- NOTE | 2019-12-03 11:29 | NUR ---
DYSPHAGIA RE-EVAL COMPLETED. +S/S OF ASPIRATION WITH THIN, NECTAR THICK LIQUIDS, AND PUREE. RECOMMEND REFRIGERATING OILER ALTERNATE MEANS OF NUTRITION/HYDRATION UNTIL PATIENT REGAINS STRENGTH. RECOMMENDATIONS: DYSPHAGIA THERAPY 2-5XWEEK TO INCREASE ORAL MOTOR STRENGTH AND PHARYNGEAL SWALLOW: LTG#1: Pt WILL TOLERATE LEAST RESTRICTIVE DIET TO MEET NUTRITION/HYDRATION WITH NO S/S OF ASPIRATION. LTG#2: SKILLED EDUCATION Pt/FAMILY/STAFF STG#1: Pt WILL PARTICIPATE IN LARYNGEAL ELEVATION/EXCURSION EXERCISES WITH 80% ACCURACY. STG#2: Pt WILL PARTICIPATE IN TONGUE BASE RETRACTION EXERCISES WITH 80% ACCURACY. STG#3: Pt WILL PARTICIPATE IN ORAL MOTOR EXERCISES WITH 80% ACCURACY. STG#4: Pt WILL TOLERATE THERAPEUTIC TRIALS OF ICE CHIPS WITH NO OVERT S/S OF ASPIRATION. STG#5: Pt WILL BE ABLE TO PARTICIPATE IN MBSS AFTER 2-4 WEEKS OF THERAPEUTIC INTERVENTION. STG#6: SKILLED EDUCATION Pt/FAMILY/STAFF. LAB CLERK COORDINATED CARE AND RECOMMENDATIONS WITH NURSE AND DR. LYNN. Addendum: 12/03/[address] UVALDO MADRIGAL Amended: Links added.
[2019-12-03 12:30] VITALS: BP 119/76
--- NOTE | 2019-12-03 13:32 | NUR ---
DC PLAN PATIENT ACCEPTED TO [facility]. SENT UPDATES TO FACILITY. MOT SIGNED JUST PENDING HOUSE SIGNATURE LET NURSE KNOW. EMS UPDATED AND FAXED. PATIENT WAS GOING TO HAVE A PEG PLACED NOW CHANGED TO NEXT WEEK. DR. LYNN [facility]. Addendum: 12/03/19 at 1336 by BERTRAND BETANCUR RN CM Amended: Links added.
[2019-12-03 16:36] VITALS: BP 118/51
--- NOTE | 2019-12-03 18:06 | NUR ---
SPOKE WITH SYDNEE JOSEPH, PATIENT'S AND INFORMED HIM THAT PATIENT IS GETTING TRANSFERRED TO [facility]. SPOUSE AGREED. PATIENT DOES NOT HAVE ANY BELONGINGS. SHE IS BEING TRANSPORTED TO [facility] BY EMS.
== END 2019-12-03 18:17 | DRG 853 ==
LOC: EDH 21:02 → EDHIP 22:41 → 2CH 11-11 01:50 → 2BH 11-23 17:59 → 2CV 11-25 16:04 → 2AH 11-27 16:38 → 2BH 11-28 18:11 → 2AH 11-30 16:21
PROVIDERS: ADMIT Hospitalist; ATTEND Hospitalist
PROC: 5A09357 Assistance with Respiratory Ventilation, Less than 24 Consecutive Hours, Continuous Positive Airway Pressure (ICD-10-PCS; 2019-11-10)
PROC: 5A1955Z Respiratory Ventilation, Greater than 96 Consecutive Hours (ICD-10-PCS; principal; 2019-11-11)
PROC: 0BH17EZ Insertion of Endotracheal Airway into Trachea, Via Natural or Artificial Opening (ICD-10-PCS; 2019-11-11)
PROC: 02HV33Z Insertion of Infusion Device into Superior Vena Cava, Percutaneous Approach (ICD-10-PCS; 2019-11-11)
PROC: B548ZZA Ultrasonography of Superior Vena Cava, Guidance (ICD-10-PCS; 2019-11-11)
PROC: 4A023N7 Measurement of Cardiac Sampling and Pressure, Left Heart, Percutaneous Approach (ICD-10-PCS; 2019-11-24)
PROC: B2111ZZ Fluoroscopy of Multiple Coronary Arteries using Low Osmolar Contrast (ICD-10-PCS; 2019-11-24)
PROC: B41F1ZZ Fluoroscopy of Right Lower Extremity Arteries using Low Osmolar Contrast (ICD-10-PCS; 2019-11-24)
PROC: 02B70ZZ Excision of Left Atrium, Open Approach (ICD-10-PCS; 2019-11-26)
PROC: 5A09357 Assistance with Respiratory Ventilation, Less than 24 Consecutive Hours, Continuous Positive Airway Pressure (ICD-10-PCS; 2019-11-26)
PROC: 5A1221Z Performance of Cardiac Output, Continuous (ICD-10-PCS; 2019-11-26)
PROC: 5A09357 Assistance with Respiratory Ventilation, Less than 24 Consecutive Hours, Continuous Positive Airway Pressure (ICD-10-PCS; 2019-11-27)
PROC: 30233N1 Transfusion of Nonautologous Red Blood Cells into Peripheral Vein, Percutaneous Approach (ICD-10-PCS; 2019-11-29)
DX: A41.9 Sepsis, unspecified organism (principal); J96.01 Acute respiratory failure with hypoxia; J81.0 Acute pulmonary edema; R65.21 Severe sepsis with septic shock; J15.9 Unspecified bacterial pneumonia; G93.6 Cerebral edema; I50.33 Acute on chronic diastolic (congestive) heart failure; J96.02 Acute respiratory failure with hypercapnia; I62.00 Nontraumatic subdural hemorrhage, unspecified; J45.901 Unspecified asthma with (acute) exacerbation; E87.0 Hyperosmolality and hypernatremia; G81.94 Hemiplegia, unspecified affecting left nondominant side; G93.40 Encephalopathy, unspecified; I13.0 Hypertensive heart and chronic kidney disease with heart failure and stage 1 through stage 4 chronic kidney disease, or unspecified chronic kidney disease; I30.9 Acute pericarditis, unspecified; I47.1 Supraventricular tachycardia; I48.92 Unspecified atrial flutter; I87.1 Compression of vein; J93.9 Pneumothorax, unspecified; J98.11 Atelectasis; N17.9 Acute kidney failure, unspecified; N39.0 Urinary tract infection, site not specified; D15.1 Benign neoplasm of heart; E87.6 Hypokalemia; B97.10 Unspecified enterovirus as the cause of diseases classified elsewhere; B97.89 Other viral agents as the cause of diseases classified elsewhere; D64.9 Anemia, unspecified; E27.9 Disorder of adrenal gland, unspecified; E66.01 Morbid (severe) obesity due to excess calories; E83.39 Other disorders of phosphorus metabolism; E83.42 Hypomagnesemia; E86.0 Dehydration; E86.1 Hypovolemia; I05.0 Rheumatic mitral stenosis; I25.10 Atherosclerotic heart disease of native coronary artery without angina pectoris; I27.20 Pulmonary hypertension, unspecified; I48.91 Unspecified atrial fibrillation; K75.9 Inflammatory liver disease, unspecified; L89.152 Pressure ulcer of sacral region, stage 2; M06.9 Rheumatoid arthritis, unspecified; M19.90 Unspecified osteoarthritis, unspecified site; M21.372 Foot drop, left foot; N18.3 Chronic kidney disease, stage 3 (moderate); R13.12 Dysphagia, oropharyngeal phase; T50.2X5A Adverse effect of carbonic-anhydrase inhibitors, benzothiadiazides and other diuretics, initial encounter; Z68.29 Body mass index [BMI] 29.0-29.9, adult; Z74.01 Bed confinement status; Z79.82 Long term (current) use of aspirin; Z79.899 Other long term (current) drug therapy; Y93.89 Activity, other specified; Y92.89 Other specified places as the place of occurrence of the external cause; Y99.8 Other external cause status; Z03.818 Encounter for observation for suspected exposure to other biological agents ruled out
CPT/HCPCS: 31500; 36415; 36600; 70450; 70553; 71045; 71275; 75574; 80048; 80053; 80061; 80202; 81001; 82040; 82330; 82435; 82550; 82803; 82947; 82948; 83605; 83735; 83874; 83880; 84100; 84132; 84145; 84295; 84484; 85018; 85025; 85027; 85347; 85378; 85610; 85730; 86606; 86612; 86635; 86698; 86738; 86850; 86900; 86901; 86922; 87040; 87071; 87077; 87088; 87186; 87205; 87385; 87449; 87486; 87581; 87633; 87635; 87798; 87804; 88305; 92610; 93005; 93306; 93313; 93318; 93458; 93880; 93970; 94002; 94003; 94150; 94640; 94644; 94660; 94664; 97039; 99291; A4357; A7048; A9579; C1894; C9113; G0378; J0153; J0171; J0282; J0456; J0461; J0610; J0690; J0692; J0696; J1100; J1120; J1644; J1650; J1815; J1940; J2001; J2150; J2185; J2250; J2270; J2370; J2405; J2543; J2704; J2720; J2765; J2795; J2930; J3010; J3370; J3475; J3480; J3490; J7030; J7040; J7050; J7060; J7070; P9016; P9045; P9047; Q9967

== ENCOUNTER 2020-07-13 10:11 | Observation (INO) | payer MEDICARE ==
[~2020-07-13] VITALS: Ht 149.9 cm; Wt 86.0 kg
[2020-07-13 11:02] LABS: BASOPHILS % (AUTO) 0.6 % (0.0-5.0); EOSINOPHILS % (AUTO) 2.7 % (0.0-8.0); HEMATOCRIT 44.3 % (36-48); LYMPHOCYTES % (AUTO) 16.5 % (21.0-51.0); MEAN CORPUSCULAR HEMOGLOBIN 28.8 pg (27.0-33.0); MEAN CORPUSCULAR HGB CONC 33.2 g/dL (32.0-36.0); MEAN CORPUSCULAR VOLUME 86.9 fL (79-99); MONOCYTES % (AUTO) 7.1 % (3.0-13.0); NEUTROPHILS % (AUTO) 72.7 % (40.0-77.0); PLATELET COUNT (AUTO) 298 K/uL (130-400); RED CELL DISTRIBUTION WIDTH 13.7 % (11.0-15.5); WHITE BLOOD COUNT (AUTO) 13.7 K/uL (4.8-10.8)
[2020-07-13 11:04] LABS: ALBUMIN 3.7 g/dL (3.5-5.0); BILIRUBIN,TOTAL 0.6 mg/dL (0.2-1.0); CREATININE 0.9 mg/dL (0.5-1.5); POTASSIUM 3.5 mmol/L (3.5-5.1); TOTAL PROTEIN, SERUM 9.2 g/dL (6.0-8.3)
[2020-07-13 11:08] LABS: ABG BASE EXCESS 1.5 mmol/L (-2.0-3.0); ABG HCO3 25.2 mmol/L (21.0-28.0); ABG OXYGEN SATURATION 93.6 % (95.0-99.0); ABG PCO2 37 mmHg (32-45)
[2020-07-13 11:47] LABS: INR 0.92 (0.85-1.15); PARTIAL THROMBOPLASTIN TIME 25.9 SEC (26.3-35.5)
[2020-07-13 14:02] LABS: APPEARANCE,URINE Clear (CLEAR); BILIRUBIN,URINE Negative (NEGATIVE); COLOR,URINE Yellow (YELLOW); GLUCOSE, URINE (UA) Negative (NEGATIVE); KETONES,URINE Negative (NEGATIVE); LEUKOCYTE ESTERASE ,URINE Negative (NEGATIVE); NITRATE,URINE Negative (NEGATIVE); OCCULT BLOOD,URINE Negative (NEGATIVE); PROTEIN,URINE Negative (NEGATIVE); UROBILINOGEN,URINE 0.2 mg/dL (0.2-1.0)
[2020-07-13] MEDS ORDERED: DIPHENHYDRAMINE HCL 25 MG CAPSULE PO PRN (15:15)
[2020-07-13] MEDS ORDERED: MAG HYDROX/AL HYDROX/SIMETH ES 30 ML SUSP UDCUP PO PRN (15:15)
[2020-07-13] MEDS ORDERED: ONDANSETRON HCL 4 MG/2 ML VIAL IV PRN (15:15)
[2020-07-13] MEDS ORDERED: DiphenhydrAMINE HCL 50 MG/ML VIAL IV PRN (15:15)
[2020-07-13] MEDS ORDERED: GUAIFENESIN-DM 200/20 MG 10 ML PO PRN (15:15)
[2020-07-13] MEDS ORDERED: ACETAMINOPHEN 325 MG TAB PO PRN ×2 (15:15)
[2020-07-13] MEDS ORDERED: NITROGLYCERIN 0.4 MG SL TAB SL PRN (15:15)
[2020-07-13] MEDS ORDERED: LACTULOSE 20 GM/30 ML UDCUP PO PRN (15:15)
[2020-07-13] MEDS ORDERED: ACETAMINOPHEN-CODEINE 300/30MG TAB PO PRN ×2 (15:15)
[2020-07-13] MEDS ORDERED: HYDRALAZINE HCL 20 MG/ML VIAL IV PRN ×2 (15:15→15:30)
[2020-07-13] MEDS ORDERED: ZOLPIDEM TARTRATE 5 MG TAB PO PRN (15:15)
[2020-07-13] MEDS ORDERED: IOHEXOL-350 75 ML VIAL IV ONE (15:22)
[2020-07-13] MEDS: AZITHROMYCIN 500MG+NS 250ML 250 ML IV SCH (15:45)
[2020-07-13] MEDS ORDERED: AZITHROMYCIN 500MG+NS 250ML 250 ML IV ONE (16:36)
[2020-07-13] MEDS ORDERED: DEXAMETHASONE SOD PHOSPHATE 10MG/ML 1ML VIAL ONE (16:36)
[2020-07-13] MEDS ORDERED: ALBUTEROL INHALER 90MCG/INH IH ONE (16:36)
[2020-07-13] MEDS ORDERED: CEFTRIAXONE SODIUM 1 GM ONE (16:37)
[2020-07-13 17:10] LABS: CREATINE KINASE, TOTAL 64 U/L (21-232); MYOGLOBIN 31 ng/mL (10-92); TROPONIN I < 0.04 ng/mL (0.00-0.06)
[2020-07-13] MEDS: ALBUTEROL INHALER 90MCG/INH IH SCH (18:00)
[2020-07-13] MEDS ORDERED: IPRATROPIUM/ALBUTEROL SULFATE 3 ML SOLUTION IH SCH (18:00)
[2020-07-13] MEDS: ATORVASTATIN CALCIUM 20 MG TABLET PO SCH (21:00)
[2020-07-13] MEDS: METOPROLOL TARTRATE 25 MG TAB PO SCH (21:00)
[2020-07-13] MEDS: DEXAMETHASONE SOD PHOSPHATE 4 MG/ML 1ML VIAL IVP SCH (21:00)
[2020-07-13] MEDS: FAMOTIDINE 20MG TAB 20 MG TAB PO SCH (21:00)
[2020-07-13] MEDS ORDERED: FAMOTIDINE 20MG TAB 20 MG TAB ONE (21:00)
[2020-07-13] MEDS ORDERED: METOPROLOL TARTRATE 25 MG TAB ONE (21:00)
[2020-07-13] MEDS ORDERED: ATORVASTATIN CALCIUM 20 MG TABLET ONE (21:00)
[2020-07-13 22:12] VITALS: BP 113/66
[2020-07-14] VITALS (7 sets, daily range): BP systolic 98–127; BP diastolic 58–75
[2020-07-14 01:14] LABS: CREATINE KINASE, TOTAL 69 U/L (21-232); MYOGLOBIN 25 ng/mL (10-92); TROPONIN I < 0.04 ng/mL (0.00-0.06)
[2020-07-14] MEDS ORDERED: METO50TA18 PO (05:21)
[2020-07-14] MEDS ORDERED: ASPI-1197 PO (05:21)
[2020-07-14] MEDS ORDERED: AMLO5TAB4 PO (05:21)
[2020-07-14] MEDS ORDERED: ATOR10 PO (05:21)
[2020-07-14] MEDS ORDERED: AMIO200T6 PO (05:21)
[2020-07-14] MEDS: ALBUTEROL INHALER 90MCG/INH IH SCH ×2 (06:41)
[2020-07-14 08:38] LABS: CREATINE KINASE, TOTAL 70 U/L (21-232); MYOGLOBIN 22 ng/mL (10-92); TROPONIN I < 0.04 ng/mL (0.00-0.06)
[2020-07-14] MEDS: METOPROLOL TARTRATE 25 MG TAB PO SCH ×2 (08:55→20:30)
[2020-07-14] MEDS: CEFTRIAXONE SODIUM 1 GM IVP SCH (08:55)
[2020-07-14] MEDS: DEXAMETHASONE SOD PHOSPHATE 4 MG/ML 1ML VIAL IVP SCH ×2 (08:55→20:30)
[2020-07-14] MEDS: ASPIRIN 81MG TAB.CHEW PO SCH (08:56)
[2020-07-14] MEDS: FAMOTIDINE 20MG TAB 20 MG TAB PO SCH ×2 (08:56→20:30)
[2020-07-14] MEDS: ENOXAPARIN SODIUM 30 MG/0.3 ML SQ SCH (08:57)
[2020-07-14] MEDS: IPRATROPIUM/ALBUTEROL SULFATE 3 ML SOLUTION IH SCH ×3 (11:19→23:14)
--- NOTE | 2020-07-14 12:25 | NUR ---
PULMONARY DR MCCLELLAND AWARE OF CONSULT, STATES WILL SEE PT TODAY
--- NOTE | 2020-07-14 13:35 | NUR ---
MET WITH PATIENT AND SPOUSE AT BEDSIDE FOR D/C PLANNING LIVES W SPOUSE SYDNEE WHO WILL PROVIDE TRANSPORT USES A ROLLATOR WALKER BUT IS OTHERS [employer] INDEPENDENT NO PROVIDER SERVICES, GOES TO [facility] FOR PCP CARE HAS A NEBULIZER AND AN INHALER BREATHING EASILY WITH OUT OXYGEN . DCP IS HOME, KEVIN OT FOLLOW Addendum: 07/14/20 at 1935 by SAGE CR RN CM Amended: Links added.
[2020-07-14] MEDS: AZITHROMYCIN 500MG+NS 250ML 250 ML IV SCH (17:37)
[2020-07-14] MEDS: ATORVASTATIN CALCIUM 20 MG TABLET PO SCH (20:30)
--- NOTE | 2020-07-14 21:30 | NUR ---
DR MCCLELLAND ROUNDED ON PATIENT. PER MD, ORDER BNP FOR AM AND ORDER BIPAP FOR HS
[2020-07-15 03:53] VITALS: BP 120/76
[2020-07-15] MEDS: IPRATROPIUM/ALBUTEROL SULFATE 3 ML SOLUTION IH SCH ×2 (06:29→11:00)
[2020-07-15 08:00] VITALS: BP 128/80
[2020-07-15] MEDS: CEFTRIAXONE SODIUM 1 GM IVP SCH (09:39)
[2020-07-15] MEDS: DEXAMETHASONE SOD PHOSPHATE 4 MG/ML 1ML VIAL IVP SCH (09:42)
[2020-07-15] MEDS: ENOXAPARIN SODIUM 30 MG/0.3 ML SQ SCH (09:42)
[2020-07-15] MEDS: ASPIRIN 81MG TAB.CHEW PO SCH (09:42)
[2020-07-15] MEDS: METOPROLOL TARTRATE 25 MG TAB PO SCH (09:42)
[2020-07-15] MEDS: FAMOTIDINE 20MG TAB 20 MG TAB PO SCH (09:51)
[2020-07-15 11:57] VITALS: BP 115/69
[2020-07-15] MEDS ORDERED: AMOX-429 PO (15:51)
[2020-07-15 16:07] VITALS: BP 134/83
== END 2020-07-15 17:50 | disposition home or self-care (01) ==
LOC: EDH 10:11 → EDHIP 15:14 → 4CH 21:02
PROVIDERS: ADMIT Hospitalist; ATTEND Hospitalist
DX: J18.9 Pneumonia, unspecified organism (principal); Z20.828 Contact with and (suspected) exposure to other viral communicable diseases; J45.902 Unspecified asthma with status asthmaticus; R07.89 Other chest pain; I10 Essential (primary) hypertension; E66.9 Obesity, unspecified; D72.829 Elevated white blood cell count, unspecified; M19.90 Unspecified osteoarthritis, unspecified site; G47.33 Obstructive sleep apnea (adult) (pediatric); J96.01 Acute respiratory failure with hypoxia; M21.379 Foot drop, unspecified foot; J98.11 Atelectasis; J81.1 Chronic pulmonary edema; Z79.899 Other long term (current) drug therapy; Z68.38 Body mass index [BMI] 38.0-38.9, adult
CPT/HCPCS: 36415 ×3; 36600; 71045; 71275; 80053; 81003; 82550 ×4; 82728; 82803; 83615; 83874 ×3; 83880; 84484 ×4; 85025; 85378; 85610; 85730; 87040 ×2; 87426; 93005; 94640 ×5; 94660; 94664; 96365; 96366; 96372 ×2; 96375; 96376 ×2; 99285; G0378 ×49; J0456 ×2; J0696 ×3; J1100 ×4; J1650 ×2; Q9967; U0003

== ENCOUNTER 2020-08-16 03:42 | Inpatient (IN) | payer MEDICARE ==
[~2020-08-16] VITALS: Ht 149.9 cm; Wt 82.9 kg
[~2020-08-16 03:42] MED LIST changes: -ALBUMIN (HUMAN) 25% 50 ML IV ONE; -AMINOCAPROIC ACID 250 MG/ML 20 ML VIAL IV ONE; +AMIO200T6 PO; +AMLO5TAB4 PO; +AMOX-429 PO; +ASPI-1197 PO; +ATOR10 PO; -CALCIUM CHLORIDE 100 MG/ML 10 ML SYG IVP ONE; -HEPARIN SODIUM 1000UNIT/ML 10ML VIAL IV ONE; -MAGNESIUM SULFATE 1 GM/2 ML VIAL IM ONE; -MANNITOL 25% 50ML VIAL IV ONE; +METO50TA18 PO; -PHENYLEPHRINE HCL 10 MG/ML 1ML VIAL IV ONE; -ROCURONIUM BROMIDE 10MG/1ML 5ML VL IV ONE; -SODIUM BICARB 8.4% 50ML SYRINGE IVP ONE
[2020-08-16 04:01] LABS: BASOPHILS % (AUTO) 0.7 % (0.0-5.0); EOSINOPHILS % (AUTO) 2.4 % (0.0-8.0); LYMPHOCYTES % (AUTO) 32.8 % (21.0-51.0); MEAN CORPUSCULAR HEMOGLOBIN 29.5 pg (27.0-33.0); MEAN CORPUSCULAR HGB CONC 33.8 g/dL (32.0-36.0); MEAN CORPUSCULAR VOLUME 87.4 fL (79-99); MONOCYTES % (AUTO) 7.7 % (3.0-13.0); NUCLEATED RED BLOOD CELLS 0.2 % (0.0-0.19); PLATELET COUNT (AUTO) 311 K/uL (130-400); RED BLOOD CELL COUNT(AUTO) 5.15 MIL/uL (4.00-5.50); RED CELL DISTRIBUTION WIDTH 13.4 % (11.0-15.5); WHITE BLOOD COUNT (AUTO) 8.4 K/uL (4.8-10.8)
[2020-08-16 04:22] LABS: ALBUMIN 3.6 g/dL (3.5-5.0); BILIRUBIN,TOTAL 0.4 mg/dL (0.2-1.0); CREATININE 0.8 mg/dL (0.5-1.5); TOTAL PROTEIN, SERUM 8.4 g/dL (6.0-8.3)
[2020-08-16 04:23] LABS: POTASSIUM 2.6 mmol/L (3.5-5.1)
[2020-08-16 04:36] LABS: MAGNESIUM 2.1 mg/dL (1.80-2.40); PHOSPHORUS 3.2 mg/dL (2.5-4.9)
[2020-08-16] MEDS ORDERED: POTASSIUM CHLORIDE 20MEQ/100ML 100 ML IV ONE (04:48)
[2020-08-16] MEDS ORDERED: POTASSIUM CHLORIDE 20 MEQ ERTAB PO ONE ×2 (04:51→21:51)
[2020-08-16] MEDS ORDERED: POTASSIUM CHLORIDE 20 MEQ ERTAB PO PRN (05:00)
[2020-08-16] MEDS ORDERED: POTASSIUM CHLORIDE 10% ELIXIR 20 MEQ/15 ML UDCUP PO PRN (05:00)
[2020-08-16] MEDS ORDERED: LIDOCAINE HCL-MPF 1% 2ML VIAL IV PRN (05:00)
[2020-08-16] MEDS ORDERED: ONDANSETRON HCL 4 MG/2 ML VIAL IV PRN (05:00)
[2020-08-16] MEDS ORDERED: ACETAMINOPHEN 325 MG TAB PO PRN ×2 (05:00)
[2020-08-16] MEDS ORDERED: NITROGLYCERIN 0.4 MG SL TAB SL PRN (05:00)
[2020-08-16] MEDS ORDERED: POTASSIUM CHLORIDE 20MEQ/100ML 100 ML IV PRN (05:00)
[2020-08-16 07:24] LABS: AMPHET/METH SCREEN,URINE NEGATIVE (NEGATIVE); BARBITURATE SCREEN, URINE NEGATIVE (NEGATIVE); BENZODIAZEPINES SCREEN,URINE NEGATIVE (NEGATIVE); CANNABINOID SCREEN,URINE NEGATIVE (NEGATIVE); COCAINE SCREEN,URINE NEGATIVE (NEGATIVE); OPIATE SCREEN,URINE NEGATIVE (NEGATIVE); PHENCYCLIDINE SCREEN,URINE NEGATIVE (NEGATIVE)
[2020-08-16 07:37] LABS: APPEARANCE,URINE Clear (CLEAR); BILIRUBIN,URINE Negative (NEGATIVE); COLOR,URINE Yellow (YELLOW); GLUCOSE, URINE (UA) Negative (NEGATIVE); KETONES,URINE Negative (NEGATIVE); LEUKOCYTE ESTERASE ,URINE Trace (NEGATIVE); NITRATE,URINE Negative (NEGATIVE); OCCULT BLOOD,URINE Negative (NEGATIVE); PH,URINE 7.5 (5.0-8.0); PROTEIN,URINE Negative (NEGATIVE); UROBILINOGEN,URINE 0.2 mg/dL (0.2-1.0)
[2020-08-16 08:20] LABS: BACTERIA,URINE Rare /HPF (None Seen); RBC,URINE None Seen /HPF (0-1); WBC,URINE 0-1 /HPF (0-1)
[2020-08-16] MEDS ORDERED: ASPIRIN 81MG TAB.CHEW ONE (08:56)
[2020-08-16] MEDS ORDERED: FAMOTIDINE 20MG TAB 20 MG TAB ONE ×2 (08:56→20:46)
[2020-08-16] MEDS ORDERED: ONDANSETRON HCL 4 MG/2 ML VIAL ONE ×2 (08:56→17:17)
[2020-08-16] MEDS ORDERED: MORPHINE SULFATE 2 MG/ML 1ML SYG ONE ×3 (08:57→22:58)
[2020-08-16] MEDS: FAMOTIDINE 20MG TAB 20 MG TAB PO SCH ×2 (09:00→21:00)
[2020-08-16] MEDS: ASPIRIN 81MG TAB.CHEW PO SCH (09:00)
[2020-08-16 10:28] LABS: CREATININE 0.7 mg/dL (0.5-1.5); POTASSIUM 4.8 mmol/L (3.5-5.1)
[2020-08-16] MEDS ORDERED: IOHEXOL-350 75 ML VIAL IV ONE (10:31)
[2020-08-16 13:44] LABS: CREATININE 0.8 mg/dL (0.5-1.5); POTASSIUM 3.4 mmol/L (3.5-5.1)
[2020-08-16 17:12] LABS: CREATININE 0.9 mg/dL (0.5-1.5); POTASSIUM 3.6 mmol/L (3.5-5.1)
[2020-08-16 20:25] LABS: CREATININE 1.1 mg/dL (0.5-1.5); POTASSIUM 3.1 mmol/L (3.5-5.1)
[2020-08-16 23:22] VITALS: BP 129/78
[2020-08-16] MEDS ORDERED: ABAT125A SQ (23:52)
[2020-08-17 04:00] VITALS: BP 108/60
[2020-08-17 05:32] LABS: BASOPHILS % (AUTO) 0.9 % (0.0-5.0); EOSINOPHILS % (AUTO) 2.7 % (0.0-8.0); HEMATOCRIT 41.8 % (36-48); LYMPHOCYTES % (AUTO) 31.3 % (21.0-51.0); MEAN CORPUSCULAR HEMOGLOBIN 28.9 pg (27.0-33.0); MEAN CORPUSCULAR HGB CONC 32.8 g/dL (32.0-36.0); MEAN CORPUSCULAR VOLUME 88.2 fL (79-99); MONOCYTES % (AUTO) 7.1 % (3.0-13.0); NEUTROPHILS % (AUTO) 57.6 % (40.0-77.0); PLATELET COUNT (AUTO) 297 K/uL (130-400); RED BLOOD CELL COUNT(AUTO) 4.74 MIL/uL (4.00-5.50); RED CELL DISTRIBUTION WIDTH 13.4 % (11.0-15.5); WHITE BLOOD COUNT (AUTO) 8.1 K/uL (4.8-10.8)
[2020-08-17 05:56] LABS: CREATININE 0.9 mg/dL (0.5-1.5); POTASSIUM 3.9 mmol/L (3.5-5.1)
[2020-08-17 08:04] VITALS: BP 147/83
[2020-08-17] MEDS: MORPHINE SULFATE 2 MG/ML 1ML SYG IV PRN ×2 (09:11→18:38)
[2020-08-17] MEDS: METOPROLOL TARTRATE 50 MG TAB PO SCH ×2 (09:38→20:08)
[2020-08-17] MEDS: ASPIRIN 81MG TAB.CHEW PO SCH ×2 (09:39→09:42)
[2020-08-17] MEDS: FAMOTIDINE 20MG TAB 20 MG TAB PO SCH ×3 (09:39→20:08)
[2020-08-17 11:42] VITALS: BP 117/74
[2020-08-17 16:56] VITALS: BP 120/80
[2020-08-17 19:40] VITALS: BP 136/79
[2020-08-17] MEDS: SUCRALFATE 1 GM TABLET PO SCH (20:08)
[2020-08-17] MEDS ORDERED: ATORVASTATIN CALCIUM 10 MG TABLET PO SCH (21:00)
[2020-08-18] VITALS: BP 125/68
[2020-08-18 04:00] VITALS: BP 109/62
[2020-08-18 05:35] LABS: BASOPHILS % (AUTO) 0.9 % (0.0-5.0); HEMATOCRIT 42.2 % (36-48); LYMPHOCYTES % (AUTO) 31.7 % (21.0-51.0); MEAN CORPUSCULAR HEMOGLOBIN 29.1 pg (27.0-33.0); MEAN CORPUSCULAR HGB CONC 33.2 g/dL (32.0-36.0); MEAN CORPUSCULAR VOLUME 87.7 fL (79-99); NEUTROPHILS % (AUTO) 54.9 % (40.0-77.0); PLATELET COUNT (AUTO) 304 K/uL (130-400); RED BLOOD CELL COUNT(AUTO) 4.81 MIL/uL (4.00-5.50); RED CELL DISTRIBUTION WIDTH 13.3 % (11.0-15.5); WHITE BLOOD COUNT (AUTO) 8.6 K/uL (4.8-10.8)
[2020-08-18 05:43] LABS: CARBON DIOXIDE 30 mmol/L (21-32); CHLORIDE 107 mmol/L (101-111); GLOMERULAR FILTR. RATE CALC 61 mL/min (>60); GLUCOSE,RANDOM 95 mg/dL (70-105); POTASSIUM 3.4 mmol/L (3.5-5.1); SODIUM SERUM 145 mmol/L (136-145); UREA NITROGEN, BLOOD 21 mg/dL (7-18)
[2020-08-18] MEDS: SUCRALFATE 1 GM TABLET PO SCH ×3 (07:18→16:37)
[2020-08-18 07:53] VITALS: BP 133/83
[2020-08-18] MEDS ORDERED: POTASSIUM CHLORIDE 20 MEQ ERTAB PO SCH (08:15)
[2020-08-18] MEDS: FAMOTIDINE 20MG TAB 20 MG TAB PO SCH (09:00)
[2020-08-18] MEDS: METOPROLOL TARTRATE 50 MG TAB PO SCH (09:00)
[2020-08-18] MEDS: ASPIRIN 81MG TAB.CHEW PO SCH (09:00)
[2020-08-18] MEDS: MORPHINE SULFATE 2 MG/ML 1ML SYG IV PRN (09:06)
[2020-08-18] MEDS ORDERED: POLYETHYLENE GLYCOL 3350 17 GM POWD.PACK ONE (09:14)
[2020-08-18 11:57] VITALS: BP 139/98
[2020-08-18] MEDS ORDERED: SUCR1TAB PO (15:55)
[2020-08-18] MEDS ORDERED: FAMO20TA8 PO (15:55)
== END 2020-08-18 17:35 | disposition home or self-care (01) | DRG 392 ==
LOC: EDH 03:42 → OBSVTOIN 04:50 → EDHIP 04:50 → 3AH 23:00
PROVIDERS: ADMIT Family Medicine; ATTEND Family Medicine
DX: K21.9 Gastro-esophageal reflux disease without esophagitis (principal); I25.110 Atherosclerotic heart disease of native coronary artery with unstable angina pectoris; I69.354 Hemiplegia and hemiparesis following cerebral infarction affecting left non-dominant side; F32.9 Major depressive disorder, single episode, unspecified; M19.90 Unspecified osteoarthritis, unspecified site; E87.6 Hypokalemia; I48.0 Paroxysmal atrial fibrillation; I13.10 Hypertensive heart and chronic kidney disease without heart failure, with stage 1 through stage 4 chronic kidney disease, or unspecified chronic kidney disease; J45.909 Unspecified asthma, uncomplicated; M21.372 Foot drop, left foot; N18.2 Chronic kidney disease, stage 2 (mild); E66.9 Obesity, unspecified; Z20.828 Contact with and (suspected) exposure to other viral communicable diseases; Z68.37 Body mass index [BMI] 37.0-37.9, adult; Z90.710 Acquired absence of both cervix and uterus; Z79.82 Long term (current) use of aspirin; Z79.899 Other long term (current) drug therapy; Z91.19 Patient's noncompliance with other medical treatment and regimen; Z82.3 Family history of stroke; Z82.49 Family history of ischemic heart disease and other diseases of the circulatory system
CPT/HCPCS: 36415; 71045; 71275; 73600; 80048; 80053; 80305; 81001; 83735; 83880; 84100; 84145; 84443; 84484; 85025; 85378; 93005; 93306; 93970; G0378; J2405; J3480; Q9967; U0003

== ENCOUNTER → 2024-01-15 | Outpatient (CLI) | payer OTHER ==
[~2024-01-15] MED LIST changes: +ABAT125A SQ; -AMIO200T6 PO; -AMOX-429 PO; +FAMO20TA8 PO; +SUCR1TAB PO
== END | disposition home or self-care (01) ==
LOC: RAH 13:03
PROVIDERS: ATTEND Family Medicine
DX: N32.89 Other specified disorders of bladder (principal); R31.9 Hematuria, unspecified
CPT/HCPCS: 76770

== ENCOUNTER → 2024-01-21 | Outpatient (CLI) | payer OTHER | END | disposition home or self-care (01) | LOC: SHCH 12:49 | PROVIDERS: ATTEND Internal Medicine Cardiovascular Disease | DX: I08.3 Combined rheumatic disorders of mitral, aortic and tricuspid valves (principal); I25.10 Atherosclerotic heart disease of native coronary artery without angina pectoris | CPT/HCPCS: 93306 ==